=== PATIENT | female | born 1990 | race Caucasian/White ===

== ENCOUNTER 2021-08-30 12:44 | Emergency (ER) | payer OTHER ==
[2021-08-30 12:56] VITALS: O2SAT 98
[2021-08-30] MEDS ORDERED: TYLENOL 325 MG PO ONE (13:01)
[2021-08-30] MEDS ORDERED: TYLENOL 325 MG ONE (13:06)
--- NOTE | 2021-08-30 13:27 | ERPHSYRPT ---
- History of Present Illness Time Seen by Provider: 08/30/21 12:55 Source: patient Exam Limitations: no limitations Patient Subjective Stated Complaint: pt states "I got my finger caught in the dog kennel and though I just jammed it and had my boyfriend pull it and it is r eally swollen and bruised." Triage Nursing Assessment: Pt presented alert and oriented X 3, skin pwd. Pt ambulates with an upright steady gait, pt third digit on left hand swolen between distal knuckles and anteriorly bruised. Physician History: Patient a 30-year-old female presents emergency department for evaluation of injury to her left long finger. Patient states she caught her finger in a kennel. Pain described as an ache that is localized. No radiation. Pain worse with movement and palpation. Pain improved with rest. Patient thought that she had simply "jammed" her finger. Her significant other pulled her finger and it subsequently became swollen and more painful. Patient currently concerned with possible fracture. No other injuries reported. Patient denies history of the same. Patient voices no other complaints or concerns at this time. Timing/Duration: today Severity: mild Modifying Factors: Improves With: movement Associated Symptoms: denies symptoms Allergies/Adverse Reactions: latex Allergy (Severe, Verified 08/30/21 12:57) red hives itch Home Medications: Naltrexone HCl Dihydrate 50 gm MC DAILY 08/30/21 [History] Prazosin HCl 1 mg PO TID 08/30/21 [History] Vortioxetine Hydrobromide [Trintellix] 5 mg PO DAILY 08/30/21 [History] Hx Tetanus, Diphtheria Vaccination/Date Given: Yes Hx Influenza Vaccination/Date Given: No Hx Pneumococcal Vaccination/Date Given: No Immunizations Up to Date: Yes Travel Risk - International Travel Have you traveled outside of the country in past 3 weeks: No - Coronavirus Screening Are you exhibiting any of the following symptoms?: No Close contact with a COVID-19 positive Pt in past 14-21 Days: No - Vaccine Status Have you recieved a Covid-19 vaccination: No - Review of Systems Constitutional: No Symptoms, No Fever, No Chills Eyes: No Symptoms Ears, Nose, & Throat: No Symptoms Respiratory: No Symptoms, No Cough, No Dyspnea Cardiac: No Symptoms, No Chest Pain, No Edema, No Syncope Abdominal/Gastrointestinal: No Symptoms, No Abdominal Pain, No Nausea, No Vomiting, No Diarrhea Genitourinary Symptoms: No Symptoms, No Dysuria Musculoskeletal: No Symptoms, No Back Pain, No Neck Pain Skin: No Symptoms, No Rash Neurological: No Symptoms, No Dizziness, No Focal Weakness, No Sensory Changes Psychological: No Symptoms Endocrine: No Symptoms Hematologic/Lymphatic: No Symptoms Immunological/Allergic: No Symptoms All Other Systems: Reviewed and Negative - Past Medical History Pertinent Past Medical History: Yes Other Medical History: trentillix 5 mg - Past Surgical History Past Surgical History: Yes Other Surgical History: tonsils. genesis. c section X 3. oophrectomy left. hysterectomy. exploratory ob. hernia repair - Social History Smoking Status: Former smoker Exposure to second hand smoke: No Drug Use: none Patient Lives Alone: No - Female History Hx Last Menstrual Period: 03/2021 Hx Now: No - Nursing Vital Signs Nursing Vital Signs: Initial Vital Signs Temperature 97.0 F 08/30/21 12:51 Pulse Rate 68 08/30/21 12:51 Respiratory Rate 20 08/30/21 12:51 Blood Pressure 157/74 08/30/21 12:51 O2 Sat by Pulse Oximetry 98 08/30/21 12:51 Pain Scale Pain Intensity 6 - Physical Exam General Appearance: no apparent distress, alert Eye Exam: PERRL/EOMI, eyes nml inspection Ears, Nose, Throat Exam: normal ENT inspection, TMs normal, pharynx normal, moist mucous membranes Neck Exam: normal inspection, non-tender, supple, full range of motion Respiratory Exam: normal breath sounds, lungs clear, No respiratory distress Cardiovascular Exam: regular rate/rhythm, normal heart sounds, normal peripheral pulses Gastrointestinal/Abdomen Exam: soft, normal bowel sounds, No tenderness, No mass Back Exam: normal inspection, normal range of motion, No CVA tenderness, No vertebral tenderness Extremity Exam: normal inspection, normal range of motion, pelvis stable, other (Left long finger is swollen with ecchymosis. Pain with movement. The finger is neurovascular tact distally. Compartments are soft. Cap refill less than 2 seconds. Remaining fingers are unremarkable. No hand wrist or forearm pain or tenderness) Neurologic Exam: alert, oriented x 3, cooperative, normal mood/affect, nml cerebellar function, nml station & gait, sensation nml, No motor deficits Skin Exam: normal color, warm, dry, No rash Lymphatic Exam: No adenopathy SpO2 Interpretation: normal SpO2: 98 O2 Delivery: Room Air - Course Nursing assessment & vital signs reviewed: Yes - Radiology Exams Other X-ray Interpretation: Interpreted by me (Left long finger no fracture dislocations. Soft tissue swelling at the middle phalanx) Ordered Tests: Active Orders 24 hr Category Date Time Status FINGER(S) Stat Exams 08/30/21 13:01 Completed Medication Summary Discontinued Medications Generic Name Dose Route Start Last Admin Trade Name Erika PRN Reason Stop Dose Admin Acetaminophen 975 mg 08/30/21 13:01 08/30/21 13:08 Acetaminophen 325 Mg Tablet PO 08/30/21 13:02 975 mg STAT ONE Administration Acetaminophen Confirm 08/30/21 13:06 Acetaminophen 325 Mg Tablet Administered 08/30/21 13:07 Dose 975 mg .ROUTE .STK-MED ONE - Progress Progress: improved Progress Note: Patient reassessed. Pain improved. X-ray negative for fracture dislocation. Soft tissue swelling observed. Patient declined a finger splint. No indication for further work-up at this time. Will discharge home. Patient agrees to follow-up with primary care doctor within 48 hours for evaluation. Portions of this note were created with voice recognition technology. There may be grammatical, spelling, punctuation or sound alike errors 08/30/21 13:34 Counseled pt/family regarding: diagnosis, need for follow-up, rad results - Departure Departure Disposition: Home Clinical Impression: Finger contusion Condition: Stable Critical Care Time: No Additional Instructions: Discharge/Care Plan CHATA FORD was seen on 08/30/21 in the Emergency Room. The patient was counseled regarding Diagnosis,Lab results, Imaging studies, need for follow up and when to return to the Emergency Room. Prescriptions given: Discharge Note I have spoken with the patient and/or caregivers. I have explained the patient's condition, diagnosis and treatment plan based on the information available to me at this time. I have answered the patient's and/or caregiver's questions and addressed any concerns. The patient and/or caregivers have as good understanding of the patient's diagnosis, condition and treatment plan as can be expected at this point. The vital signs have been stable. The patient's condition is stable and appropriate for discharge from the emergency department. The patient will pursue further outpatient evaluation with the primary care physician or other designated or consulting physician as outlined in the discharge instructions. The patient and/or caregivers are agreeable to this plan of care and follow-up instructions have been explained in detail. The patient a nd/or caregivers have received these instruction. The patient/and or caregivers are aware that any significant change in condition or worsening of symptoms should prompt an immediate return to this or the closest emergency department or call 911.
--- NOTE | 2021-08-30 13:28 | XRAY ---
Indication: Pain and numbness following injury. Comparison: None 3 view left 3rd finger demonstrates mild soft tissue swelling. No other bony, articular, or soft tissue abnormalities.
[2021-08-30 13:37] VITALS: BP 150/82; PULSE 64
== END 2021-08-30 13:43 | disposition home or self-care (01) ==
LOC: ED 12:44
DX: S60.032A Contusion of left middle finger without damage to nail, initial encounter (principal); W23.0XXA Caught, crushed, jammed, or pinched between moving objects, initial encounter; M79.645 Pain in left finger(s); Z28.310 Unvaccinated for COVID-19
CPT/HCPCS: 73140; 99283; A9270-GY

== ENCOUNTER 2021-09-13 21:06 | Emergency (ER) | payer OTHER ==
[2021-09-13] MEDS ORDERED: SUBLIMAZE 100 MCG/2 ML IV ONE ×2 (21:24→22:11)
[2021-09-13] MEDS ORDERED: Sodium Chloride 0.9% 1000 ML 1,000 ML IV STA (21:24)
[2021-09-13] MEDS ORDERED: Reglan 10 MG/2 ML IV ONE (21:24)
[2021-09-13] MEDS ORDERED: Reglan 10 MG/2 ML ONE (21:31)
[2021-09-13] MEDS ORDERED: Sodium Chloride 0.9% 1000 ML 1,000 ML ONE (21:31)
[2021-09-13] MEDS ORDERED: SUBLIMAZE 100 MCG/2 ML ONE ×2 (21:31→22:14)
[2021-09-13 21:57] LABS: Appearance CLEAR (CLEAR); Bilirubin NEGATIVE (NEGATIVE); Dipstick done @ ? MAIN LAB; Glucose NEGATIVE (NEGATIVE); Ketones NEGATIVE (NEGATIVE); Nitrite NEGATIVE (NEGATIVE); Protein,Urine Dip NEGATIVE (Negative); RBC NEGATIVE Ery/ul (0-5); Specific Gravity 1.025 (1.005-1.025); Urobilinogen 0.2 mg/dL (0-1)
[2021-09-13 21:58] LABS: Urine Cultured Indicated? NO
[2021-09-13 22:19] LABS: Basophil (Absolute #) 0.02 x10^3/uL (0-0.4); Eosinophil % 1.1 % (0.00-5.0); Hematocrit 32.4 % (35-47); Hemoglobin 11.1 g/dL (12.0-16.0); Lymphocyte (Absolute #) 1.04 x10^3/uL (1.0-4.6); Lymphocytes % 11.8 % (24.0-44.0); Mean Cell Volume 90.3 fL (78-100); Mean Corpuscular Hemoglobin 30.9 pg (26-32); Mean Corpuscular Hgb Concent. 34.3 g/dL (32-36); Mean Platelet Volume 11.4 fL (7.5-11.0); Monocyte (Absolute #) 0.65 x10^3/uL (0.0-1.3); Monocytes % 7.4 % (0.0-12.0); Neutrophil % 79.3 % (36.0-66.0); Platelet Count 155 x10^3/uL (150-450); Red Blood Count 3.59 x10^6/uL (4.1-5.4); Red Cell Distribution Width 12.8 % (11.5-14.0); White Blood Count 8.8 x10^3/uL (4.0-10.5)
[2021-09-13 22:32] LABS: ALKALINE PHOSPHATASE 57 U/L (38-126); AMYLASE 59 U/L (30-110); ANION GAP 13.7 MEQ/L (5-15); BLOOD UREA NITROGEN 12 mg/dL (7-17); CHLORIDE 107 mmol/L (98-107); Calcium 8.8 mg/dL (8.4-10.2); Carbon Dioxide 19 mmol/L (22-30); Creatinine 1 0.59 mg/dL (0.52-1.04); EST GLOMERULAR FILTRATION RATE > 60.0 ML/MIN; Glucose 90 mg/dL (74-106); LIPASE 64 U/L (23-300); Potassium 3.3 mmol/L (3.5-5.1); SGOT/AST 20 U/L (14-36); SGPT/ALT 12 U/L (0-35); SODIUM 137 mmol/L (137-145); Total Protein 6.4 g/dL (6.3-8.2)
--- NOTE | 2021-09-13 23:03 | ERPHSYRPT ---
- History of Present Illness Time Seen by Provider: 09/13/21 21:25 Historian: patient Exam Limitations: no limitations Patient Subjective Stated Complaint: pt states "I woke up this morning around 0900 this morning throwin up and diarrhea all day today." Triage Nursing Assessment: Pt ambulated to cot by self, pt alert and oriented x3, pt c/o umbilical abd pain, n/v/d 0900 this morning, pt denies fever at home or any other symptoms, pt afebrile currently, pt has hx of hernia repair, 3 c sections, gall bladder removed, and hysterectomy. Physician History: Patient is a 31-year-old white female presents with a complaint of abdominal pain. Pain is located in the periumbilical area she has had diarrhea nausea and vomiting which started this a.m. She has had no fever no chills but some sweats. She has had 3 C-sections a hysterectomy hernia repair and oophorectomy as well as a right tubal ligation. Timing/Duration: today Activities at Onset: none Quality: cramping Abdominal Pain Onset Location: periumbilical Pain Radiation: no radiation Severity of Pain-Max: moderate Severity of Pain-Current: mild Modifying Factors: Improves With: vomiting Associated Symptoms: diaphoresis, diarrhea, nausea, vomiting, No fever/chills Previous symptoms: no prior history Allergies/Adverse Reactions: aripiprazole [From Abiliy] Allergy (Severe, Verified 09/13/21 21:15) latex Allergy (Severe, Verified 09/13/21 21:15) red hives itch Home Medications: Naltrexone HCl Dihydrate 50 gm MC DAILY 08/30/21 [History] Prazosin HCl 1 mg PO TID 08/30/21 [History] Vortioxetine Hydrobromide [Trintellix] 5 mg PO DAILY 08/30/21 [History] Hx Tetanus, Diphtheria Vaccination/Date Given: Yes Hx Influenza Vaccination/Date Given: No Hx Pneumococcal Vaccination/Date Given: No Immunizations Up to Date: Yes Travel Risk - International Travel Have you traveled outside of the country in past 3 weeks: No - Coronavirus Screening Are you exhibiting any of the following symptoms?: No Close contact with a COVID-19 positive Pt in past 14-21 Days: No - Vaccine Status Have you recieved a Covid-19 vaccination: No - Review of Systems Constitutional: No Fever, No Chills Eyes: No Symptoms Ears, Nose, & Throat: No Symptoms Respiratory: No Cough, No Dyspnea Cardiac: No Chest Pain, No Edema, No Syncope Abdominal/Gastrointestinal: No Abdominal Pain, No Nausea, No Vomiting, No Diarrhea Genitourinary Symptoms: No Dysuria Musculoskeletal: No Back Pain, No Neck Pain Skin: No Rash Neurological: No Dizziness, No Focal Weakness, No Sensory Changes Psychological: No Symptoms Endocrine: No Symptoms All Other Systems: Reviewed and Negative - Past Medical History Pertinent Past Medical History: Yes Neurological History: No Pertinent History ENT History: No Pertinent History Cardiac History: No Pertinent History Respiratory History: No Pertinent History Endocrine Medical History: No Pertinent History Musculoskeletal History: No Pertinent History History: Kidney Cancer Psycho-Social History: Depression Female Reproductive Disorders: Ovarian Cancer Other Medical History: trentillix 5 mg - Past Surgical History Past Surgical History: Yes Other Surgical History: tonsils. genesis. c section X 3. oophrectomy left. hysterectomy. exploratory ob. hernia repair - Social History Smoking Status: Former smoker Exposure to second hand smoke: No Drug Use: none Patient Lives Alone: No - Female History Hx Last Menstrual Period: hysterecomy Hx Now: No - Nursing Vital Signs Nursing Vital Signs: Initial Vital Signs Temperature 97.6 F 09/13/21 21:16 Pulse Rate 76 09/13/21 21:16 Respiratory Rate 18 09/13/21 21:16 Blood Pressure 155/87 09/13/21 21:16 O2 Sat by Pulse Oximetry 99 09/13/21 21:16 Pain Scale Pain Intensity 9 - Physical Exam General Appearance: mild distress, alert Eye Exam: PERRL/EOMI, eyes nml inspection Ears, Nose, Throat Exam: normal ENT inspection, pharynx normal, moist mucous membranes Neck Exam: normal inspection, non-tender, supple, full range of motion Respiratory Exam: normal breath sounds, lungs clear, No respiratory distress Cardiovascular Exam: regular rate/rhythm, normal heart sounds Gastrointestinal/Abdomen Exam: soft, tenderness, guarding, other (Increased bowel sounds), No mass, No rebound Back Exam: normal inspection, normal range of motion, No CVA tenderness, No vertebral tenderness Extremity Exam: normal inspection, normal range of motion, pelvis stable Neurologic Exam: alert, oriented x 3, cooperative, normal mood/affect, nml cerebellar function, sensation nml, No motor deficits Skin Exam: normal color, warm, dry SpO2 Interpretation: normal SpO2: 99 O2 Delivery: Room Air - Course Nursing assessment & vital signs reviewed: Yes - CT Exams Abdomen/Pelvis CT Interpretation: Tele-radiologist Report Ordered Tests: Active Orders 24 hr Category Date Time Status IV Insertion STAT Care 09/13/21 21:24 Active ABDOMEN AND PELVIS W/0 CONTRAS [CT] Stat Exams 09/13/21 21:24 Taken AMYLASE Stat Lab 09/13/21 22:16 Completed CBC W DIFF Stat Lab 09/13/21 22:16 Completed CMP Stat Lab 09/13/21 22:16 Completed LIPASE Stat Lab 09/13/21 22:16 Completed Lactic Acid Stat Lab 09/13/21 22:14 Completed UA W/RFX CULTURE Stat Lab 09/13/21 21:31 Completed Medication Summary Discontinued Medications Generic Name Dose Route Start Last Admin Trade Name Freq PRN Reason Stop Dose Admin Fentanyl Citrate 50 mcg 09/13/21 21:24 09/13/21 21:32 Fentanyl Citrate 100 Mcg/2 Ml* Vial IV 09/13/21 21:25 50 mcg STAT ONE Administration Fentanyl Citrate Confirm 09/13/21 21:31 Fentanyl Citrate 100 Mcg/2 Ml* Vial Administered 09/13/21 21:32 Dose 100 mcg .ROUTE .STK-MED ONE Fentanyl Citrate 50 mcg 09/13/21 22:11 09/13/21 22:15 Fentanyl Citrate 100 Mcg/2 Ml* Vial IV 09/13/21 22:12 50 mcg STAT ONE Administration Fentanyl Citrate Confirm 09/13/21 22:14 Fentanyl Citrate 100 Mcg/2 Ml* Vial Administered 09/13/21 22:15 Dose 100 mcg .ROUTE .STK-MED ONE Sodium Chloride 1,000 mls @ 999 mls/hr 09/13/21 21:24 09/13/21 22:33 Sodium Chloride 0.9% 1000 Ml IV 09/13/21 22:24 Infused .Q1H1M STA Infusion Sodium Chloride Confirm 09/13/21 21:31 Sodium Chloride 0.9% 1000 Ml Administered 09/13/21 21:32 Dose 1,000 mls @ ud .ROUTE .STK-MED ONE Metoclopramide HCl 10 mg 09/13/21 21:24 09/13/21 21:32 Metoclopramide Hcl 10 Mg/2 Ml Vial IV 09/13/21 21:25 10 mg STAT ONE Administration Metoclopramide HCl Confirm 09/13/21 21:31 Metoclopramide Hcl 10 Mg/2 Ml Vial Administered 09/13/21 21:32 Dose 10 mg .ROUTE .K-MED ONE Lab/Rad Data: Laboratory Result Diagrams 09/13/21 22:16 09/13/21 22:16 Laboratory Results 09/13/21 09/13/21 09/13/21 Range/Units 22:16 22:16 22:14 WBC 8.8 (4.0-10.5) x10^3/uL RBC 3.59 L (4.1-5.4) x10^6/uL Hgb 11.1 L (12.0-16.0) g/dL Hct 32.4 L (35-47) % MCV 90.3 (78-100) fL MCH 30.9 (26-32) pg MCHC 34.3 (32-36) g/dL RDW 12.8 (11.5-14.0) % Plt Count 155 (150-450) x10^3/uL MPV 11.4 H (7.5-11.0) fL Gran % 79.3 H (36.0-66.0) % Immature Gran % (Auto) 0.2 (0.00-0.4) % Nucleat RBC Rel Count 0.0 (0.00-0.1) % Eos # (Auto) 0.10 (0-0.5) x10^3/uL Immature Gran # (Auto) 0.02 (0.00-0.03) x10^3u/L Absolute Lymphs (auto) 1.04 (1.0-4.6) x10^3/uL Absolute Monos (auto) 0.65 (0.0-1.3) x10^3/uL Absolute Nucleated RBC 0.00 (0.00-0.01) x10^3u/L Lymphocytes % 11.8 L (24.0-44.0) % Monocytes % 7.4 (0.0-12.0) % Eosinophils % 1.1 (0.00-5.0) % Basophils % 0.2 (0.0-0.4) % Absolute Granulocytes 7.00 H (1.4-6.9) x10^3/uL Basophils # 0.02 (0-0.4) x10^3/uL Sodium 137 (137-145) mmol/L Potassium 3.3 L (3.5-5.1) mmol/L Chloride 107 (98-107) mmol/L Carbon Dioxide 19 L (22-30) mmol/L Anion Gap 13.7 (5-15) MEQ/L BUN 12 (7-17) mg/dL Creatinine 0.59 (0.52-1.04) mg/dL Estimated GFR > 60.0 ML/MIN Glucose 90 (74-106) mg/dL Lactic Acid 0.5 (0.4-2.0) Calcium 8.8 (8.4-10.2) mg/dL Total Bilirubin 0.40 (0.2-1.3) mg/dL AST 20 (14-36) U/L ALT 12 (0-35) U/L Alkaline Phosphatase 57 (38-126) U/L Serum Total Protein 6.4 (6.3-8.2) g/dL Albumin 4.0 (3.5-5.0) g/dL Amylase 59 (30-110) U/L Lipase 64 (23-300) U/L Urinalys Dipstick Clnc Urine Color (YELLOW) Urine Appearance (CLEAR) Urine pH (5-6) Ur Specific [place] (1.005-1.025) POC Urine Protein Conf (Negative) Urine Ketones (NEGATIVE) Urine Nitrite (NEGATIVE) Urine Bilirubin (NEGATIVE) Urine Urobilinogen (0-1) mg/dL Urine Leukocytes (NEGATIVE) Urine WBC (Auto) (0-5) /HPF Urine RBC (Auto) (0-2) /HPF U Epithel Cells (Auto) (FEW) /HPF Urine Bacteria (Auto) (NEGATIVE) /HPF Urine RBC (0-5) Art/ul Ur Culture Indicated? Urine Glucose (NEGATIVE) mg/dL 09/13/ Range/Units 21:31 WBC (4.0-10.5) x10^3/uL RBC (4.1-5.4) x10^6/uL Hgb (12.0-16.0) g/dL Hct (35-47) % MCV (78-100) fL MCH (26-32) pg MCHC (32-36) g/dL RDW (11.5-14.0) % Plt Count (150-450) x10^3/uL MPV (7.5-11.0) fL Gran % (36.0-66.0) % Immature Gran % (Auto) (0.00-0.4) % Nucleat RBC Rel Count (0.00-0.1) % Eos # (Auto) (0-0.5) x10^3/uL Immature Gran # (Auto) (0.00-0.03) x10^3u/L Absolute Lymphs (auto) (1.0-4.6) x10^3/uL Absolute Monos (auto) (0.0-1.3) x10^3/uL Absolute Nucleated RBC (0.00-0.01) x10^3u/L Lymphocytes % (24.0-44.0) % Monocytes % (0.0-12.0) % Eosinophils % (0.00-5.0) % Basophils % (0.0-0.4) % Absolute Granulocytes (1.4-6.9) x10^3/uL Basophils # (0-0.4) x10^3/uL Sodium (137-145) mmol/L Potassium (3.5-5.1) mmol/L Chloride (98-107) mmol/L Carbon Dioxide (22-30) mmol/L Anion Gap (5-15) MEQ/L BUN (7-17) mg/dL Creatinine (0.52-1.04) mg/dL Estimated GFR ML/MIN Glucose (74-106) mg/dL Lactic Acid (0.4-2.0) Calcium (8.4-10.2) mg/dL Total Bilirubin (0.2-1.3) mg/dL AST (14-36) U/L ALT (0-35) U/L Alkaline Phosphatase (38-126) U/L Serum Total Protein (6.3-8.2) g/dL Albumin (3.5-5.0) g/dL Amylase (30-110) U/L Lipase (23-300) U/L Urinalys Dipstick Clnc MAIN LAB Urine Color YELLOW (YELLOW) Urine Appearance CLEAR (CLEAR) Urine pH 6.0 (5-6) Ur Specific [place] 1.025 (1.005-1.025) POC Urine Protein Conf NEGATIVE (Negative) Urine Ketones NEGATIVE (NEGATIVE) Urine Nitrite NEGATIVE (NEGATIVE) Urine Bilirubin NEGATIVE (NEGATIVE) Urine Urobilinogen 0.2 (0-1) mg/dL Urine Leukocytes NEGATIVE (NEGATIVE) Urine WBC (Auto) NONE (0-5) /HPF Urine RBC (Auto) NONE (0-2) /HPF U Epithel Cells (Auto) NONE (FEW) /HPF Urine Bacteria (Auto) NONE (NEGATIVE) /HPF Urine RBC NEGATIVE (0-5) Art/ul Ur Culture Indicated? NO Urine Glucose NEGATIVE (NEGATIVE) mg/dL - Progress Progress: unchanged - Departure Departure Disposition: Home Clinical Impression: Gastroenteritis Condition: Stable Critical Care Time: No Referrals: JAY CASH NP [Primary Care Provider] - Follow up/PCP as directed Instructions: Viral Gastroenteritis, Adult (DC) Prescriptions: Dicyclomine HCl 20 mg [Bentyl 20 mg] 20 mg PO Q6-8HPRN PRN 3 Days #10 tablet PRN Reason: Pain
[2021-09-13] MEDS ORDERED: BENTYL 20 MG ONE (23:06)
[2021-09-13 23:16] VITALS: BP 134/87; PULSE 72; O2SAT 98
[2021-09-14] MEDS ORDERED: BENTYL 20 MG PO SCH (10:00)
--- NOTE | 2021-09-14 21:12 | XRAY ---
Exam: CT of the abdomen and pelvis without IV contrast. CTDI: 6.68 mGy Comparison: [None.] Indication: 31-year-old female with lower abdominal/pelvic pain with nausea, vomiting, and diarrhea. The patient gives a past history of cholecystectomy, partial right nephrectomy, hysterectomy, hernia repair, and oophorectomy. Technique: Non-IV contrast axial images were obtained through the abdomen and pelvis. Reconstructed coronal and sagittal images were created and reviewed. Findings: The lung bases reveal several right perihilar/infrahilar granulomatous calcifications. There is also a small calcified granuloma within the posterior lateral right lung base. No acute lung disease is seen. The liver and spleen appear unremarkable. Surgical clips consistent with prior cholecystectomy are seen. There is no intrahepatic biliary duct distention. The pancreas reveals no gross abnormality. The adrenal glands appear unremarkable. I note some postsurgical changes at the anterior lateral surface of the right kidney, apparently due to prior right kidney surgery/partial resection. The remainder of the kidneys appears unremarkable without renal calculi or hydronephrosis. There is no evidence of abdominal aortic aneurysm or abnormal retroperitoneal lymphadenopathy. No bowel containing ventral hernia is seen. There is minimal protrusion of some intraperitoneal fat into the base of the umbilicus on midline sagittal image #95. Nondilated, gas and fluid/secretions within the small bowel and colon are seen, likely due to enteritis/diarrhea. There is no evidence of bowel obstruction. The appendix is seen within the right lower quadrant and appears unremarkable. There is no free intraperitoneal air. The pelvis reveals a surgically absent uterus. There is a 4.2 cm x 2.9 cm oval-shaped soft tissue structure within the right hemipelvis on axial images #76 which likely represents the patient's right ovary. The left ovary is not seen. The urinary bladder is only mildly distended. There is no abnormal pelvic lymphadenopathy or free intraperitoneal fluid. There appear to be a couple calcified phleboliths within the lower right pelvis. Labial metallic jewelry is seen. The visualized bones reveal no fracture or aggressive bone lesion. Mild anterior vertebral endplate spurring is seen within the visualized lower thoracic spine. Impression: 1. Nondilated, gas and fluid/secretions within the small bowel and colon, likely due to enteritis/diarrhea. No bowel obstruction or free air/free fluid is seen. 2. Evidence of prior cholecystectomy, right renal surgery, hysterectomy, an apparent left oophorectomy. 3. Normal appendix.
== END 2021-09-13 23:21 | disposition home or self-care (01) ==
LOC: ED 21:06
DX: K52.9 Noninfective gastroenteritis and colitis, unspecified (principal); R10.33 Periumbilical pain; R11.2 Nausea with vomiting, unspecified; Z79.899 Other long term (current) drug therapy; Z28.310 Unvaccinated for COVID-19
CPT/HCPCS: 36000; 36415; 74176; 80053; 81015; 82150; 83605; 83690; 85025; 96374; 96375; 96376; 99284; J3010; A9270-GY

== ENCOUNTER 2021-09-16 12:05 | Emergency (ER) | payer OTHER ==
--- NOTE | 2021-09-16 12:32 | ERPHSYRPT ---
- History of Present Illness Time Seen by Provider: 09/16/21 12:20 Historian: patient Exam Limitations: no limitations Patient Subjective Stated Complaint: Right sided pelvic pain Triage Nursing Assessment: Patient ambulated back to ED and transferred self to bed. Patient A+O X.3 Patient's skin pink, warm and dry. Patient complains of right lower pelvic pain that started last night constant sharp pain 9/10. Patient denies N/V but states she is still having diarrhea. Patient states she was dx with enteritis a couple days ago. Physician History: This is a 31-year-old white female patient of Dr. Ramirez in [facility] and is now living in [facility] and presents to the emergency department with right lower quadrant abdominal pain. She was seen on 09/13/2021 because of abdominal pain, vomiting and diarrhea. A CAT scan on that date without contrast showed enteritis. There is no bowel obstruction. There is a normal appendix seen. There was no bowel obstruction and no free air present. Patient has had a right oophorectomy in the past and bilateral tubal ligation in the past. She is also had a cholecystectomy and hysterectomy as well as abdominal wall hernia repair. Patient had been improving in the last couple days but this morning she drank a cup of coffee and then she started having pain in in her abdomen that she described as intermittent sharp shooting pain and cramping. It became persistent as the day has progressed. Patient was given a prescription for Bentyl which she states she has been taking. Patient did not undergo any flu swab testing during her last visit. She has not been vomiting blood or passing blood rectally. She has had no vaginal bleeding. Timing/Duration: day(s) (3 to 4 days ago), intermittent, worse Activities at Onset: none Quality: cramping, sharpness, stabbing Abdominal Pain Onset Location: RLQ, suprapubic (Right side) Pain Radiation: no radiation Severity of Pain-Max: moderate Severity of Pain-Current: mild (To moderate) Associated Symptoms: denies symptoms Previous symptoms: same symptoms as today, recently seen, recently treated Allergies/Adverse Reactions: aripiprazole [From Abilify] Allergy (Severe, Verified 09/16/21 12:12) latex Allergy (Severe, Verified 09/16/21 12:12) red hives itch Home Medications: Vortioxetine Hydrobromide [Trintellix] 5 mg PO DAILY 08/30/21 [History] Hx Tetanus, Diphtheria Vaccination/Date Given: Yes Hx Influenza Vaccination/Date Given: No Hx Pneumococcal Vaccination/Date Given: No Immunizations Up to Date: Yes Travel Risk - International Travel Have you traveled outside of the country in past 3 weeks: No - Coronavirus Screening Are you exhibiting any of the following symptoms?: No Close contact with a COVID-19 positive Pt in past 14-21 Days: No - Vaccine Status Have you recieved a Covid-19 vaccination: No - Review of Systems Constitutional: No Symptoms Eyes: No Symptoms Ears, Nose, & Throat: No Symptoms Respiratory: No Symptoms Cardiac: No Symptoms Abdominal/Gastrointestinal: Abdominal Pain Genitourinary Symptoms: No Symptoms Musculoskeletal: No Symptoms Skin: No Symptoms Neurological: No Symptoms Psychological: No Symptoms Endocrine: No Symptoms Hematologic/Lymphatic: No Symptoms Immunological/Allergic: No Symptoms All Other Systems: Reviewed and Negative - Past Medical History Pertinent Past Medical History: Yes Neurological History: No Pertinent History ENT History: No Pertinent History Cardiac History: No Pertinent History Respiratory History: No Pertinent History Endocrine Medical History: No Pertinent History Musculoskeletal History: No Pertinent History History: Kidney Cancer Psycho-Social History: Depression Female Reproductive Disorders: Ovarian Cancer Other Medical History: trentillix 5 mg - Past Surgical History Past Surgical History: Yes Other Surgical History: tonsils. genesis. c section X 3. oophrectomy left. hysterectomy. exploratory ob. hernia repair - Social History Smoking Status: Former smoker Exposure to second hand smoke: No Drug Use: none Patient Lives Alone: No - Female History Hx Last Menstrual Period: hysterectomy Hx Now: No - Nursing Vital Signs Nursing Vital Signs: Initial Vital Signs Temperature 96.4 F 09/16/21 12:15 Pulse Rate 78 09/16/21 12:15 Respiratory Rate 18 09/16/21 12:15 Blood Pressure 135/72 09/16/21 12:15 O2 Sat by Pulse Oximetry 98 09/16/21 12:15 Pain Scale Pain Intensity 8 - Physical Exam General Appearance: no apparent distress, alert, anxiety Eye Exam: PERRL/EOMI, eyes nml inspection Ears, Nose, Throat Exam: normal ENT inspection, moist mucous membranes Neck Exam: normal inspection, non-tender, supple, full range of motion Respiratory Exam: normal breath sounds, lungs clear, airway intact, No chest tenderness, No respiratory distress Cardiovascular Exam: regular rate/rhythm, normal heart sounds, normal peripheral pulses Gastrointestinal/Abdomen Exam: soft, normal bowel sounds, tenderness (Mild right lower quadrant), guarding (Right lower quadrant with palpation) Pelvic Exam: not done Rectal Exam: not done Back Exam: normal inspection, normal range of motion, No CVA tenderness, No vertebral tenderness Extremity Exam: normal inspection, normal range of motion, pelvis stable Neurologic Exam: alert, oriented x 3, cooperative, library assistant II-XII nml as tested, normal mood/affect, nml cerebellar function, nml station & gait, sensation nml Skin Exam: normal color, warm, dry Lymphatic Exam: No adenopathy SpO2 Interpretation: normal SpO2: 98 O2 Delivery: Room Air - Course Nursing assessment & vital signs reviewed: Yes Ordered Tests: Active Orders 24 hr Category Date Time Status IV Insertion STAT Care 09/16/21 12:36 Active ABDOMEN AND PELVIS W/0 CONTRAS [CT] Stat Exams 09/16/21 12:36 Taken AMYLASE Stat Lab 09/16/21 13:12 Completed CBC W DIFF Stat Lab 09/16/21 13:12 Completed CMP Stat Lab 09/16/21 13:12 Completed LIPASE Stat Lab 09/16/21 13:12 Completed Lactic Acid Stat Lab 09/16/21 13:20 Completed [place] Screen Stat Lab 09/16/21 Completed UA W/RFX CULTURE Stat Lab 09/16/21 12:38 Completed Medication Summary Discontinued Medications Generic Name Dose Route Start Last Admin Trade Name Saleemq PRN Reason Stop Dose Admin Sodium Chloride 1,000 mls @ 999 mls/hr 09/16/21 12:36 09/16/21 14:05 Sodium Chloride 0.9% 1000 Ml IV 09/16/21 13:36 Infused .Q1H1M STA Infusion Sodium Chloride Confirm 09/16/21 13:02 Sodium Chloride 0.9% 1000 Ml Administered 09/16/21 13:03 Dose 1,000 mls @ ud .ROUTE .STK-MED ONE Ondansetron HCl 4 mg 09/16/21 13:01 09/16/21 13:04 Ondansetron Hcl 4 Mg/2 Ml Vial IV 09/16/21 13:02 4 mg STAT ONE Administration Ondansetron HCl Confirm 09/16/21 13:02 Ondansetron Hcl 4 Mg/2 Ml Vial Administered 09/16/21 13:03 Dose 4 mg .ROUTE .STK-MED ONE Lab/Rad Data: Laboratory Result Diagrams 09/16/21 13:12 09/16/21 13:12 Laboratory Results 09/16/21 09/16/21 09/16/21 Range/Units Unknown 13:20 13:12 WBC (4.0-10.5) x10^3/uL RBC (4.1-5.4) x10^6/uL Hgb (12.0-16.0) g/dL Hct (35-47) % MCV (78-100) fL MCH (26-32) pg MCHC (32-36) g/dL RDW (11.5-14.0) % Plt Count (150-450) x10^3/uL MPV (7.5-11.0) fL Gran % (36.0-66.0) % Immature Gran % (Auto) (0.00-0.4) % Nucleat RBC Rel Count (0.00-0.1) % Eos # (Auto) (0-0.5) x10^3/uL Immature Gran # (Auto) (0.00-0.03) x10^3u/L Absolute Lymphs (auto) (1.0-4.6) x10^3/uL Absolute Monos (auto) (0.0-1.3) x10^3/uL Absolute Nucleated RBC (0.00-0.01) x10^3u/L Lymphocytes % (24.0-44.0) % Monocytes % (0.0-12.0) % Eosinophils % (0.00-5.0) % Basophils % (0.0-0.4) % Absolute Granulocytes (1.4-6.9) x10^3/uL Basophils # (0-0.4) x10^3/uL Sodium 139 (137-145) mmol/L Potassium 3.7 (3.5-5.1) mmol/L Chloride 107 (98-107) mmol/L Carbon Dioxide 22 (22-30) mmol/L Anion Gap 13.5 (5-15) MEQ/L BUN 10 (7-17) mg/dL Creatinine 0.64 (0.52-1.04) mg/dL Estimated GFR > 60.0 ML/MIN Glucose 94 (74-106) mg/dL Lactic Acid 0.6 (0.4-2.0) Calcium 9.3 (8.4-10.2) mg/dL Total Bilirubin 0.60 (0.2-1.3) mg/dL AST 23 (14-36) U/L ALT 15 (0-35) U/L Alkaline Phosphatase 63 (38-126) U/L Serum Total Protein 7.4 (6.3-8.2) g/dL Albumin 4.6 (3.5-5.0) g/dL Amylase 76 (30-110) U/L Lipase 69 (23-300) U/L Urinalys Dipstick Clnc Urine Color (YELLOW) Urine Appearance (CLEAR) Urine pH (5-6) Ur Specific [place] (1.005-1.025) POC Urine Protein Conf (Negative) Urine Ketones (NEGATIVE) Urine Nitrite (NEGATIVE) Urine Bilirubin (NEGATIVE) Urine Urobilinogen (0-1) mg/dL Urine Leukocytes (NEGATIVE) Urine WBC (Auto) (0-5) /HPF Urine RBC (Auto) (0-2) /HPF U Epithel Cells (Auto) (FEW) /HPF Urine Bacteria (Auto) (NEGATIVE) /HPF Urine RBC (0-5) Art/ul Ur Culture Indicated? Urine Glucose (NEGATIVE) mg/dL Monoscreen NEGATIVE (Negative) 09/16/21 09/16/21 Range/Units 13:12 12:38 WBC 4.3 (4.0-10.5) x10^3/uL RBC 3.88 L (4.1-5.4) x10^6/uL Hgb 11.8 L (12.0-16.0) g/dL Hct 34.3 L (35-47) % MCV 88.4 (78-100) fL MCH 30.4 (26-32) pg MCHC 34.4 (32-36) g/dL RDW 12.5 (11.5-14.0) % Plt Count 172 (150-450) x10^3/uL MPV 10.9 (7.5-11.0) fL Gran % 69.6 H (36.0-66.0) % Immature Gran % (Auto) 0.2 (0.00-0.4) % Nucleat RBC Rel Count 0.0 (0.00-0.1) % Eos # (Auto) 0.06 (0-0.5) x10^3/uL Immature Gran # (Auto) 0.01 (0.00-0.03) x10^3u/L Absolute Lymphs (auto) 0.72 L (1.0-4.6) x10^3/uL Absolute Monos (auto) 0.52 (0.0-1.3) x10^3/uL Absolute Nucleated RBC 0.00 (0.00-0.01) x10^3u/L Lymphocytes % 16.6 L (24.0-44.0) % Monocytes % 12.0 (0.0-12.0) % Eosinophils % 1.4 (0.00-5.0) % Basophils % 0.2 (0.0-0.4) % Absolute Granulocytes 3.02 (1.4-6.9) x10^3/uL Basophils # 0.01 (0-0.4) x10^3/uL Sodium (137-145) mmol/L Potassium (3.5-5.1) mmol/L Chloride (98-107) mmol/L Carbon Dioxide (22-30) mmol/L Anion Gap (5-15) MEQ/L BUN (7-17) mg/dL Creatinine (0.52-1.04) mg/dL Estimated GFR ML/MIN Glucose (74-106) mg/dL Lactic Acid (0.4-2.0) Calcium (8.4-10.2) mg/dL Total Bilirubin (0.2-1.3) mg/dL AST (14-36) U/L ALT (0-35) U/L Alkaline Phosphatase (38-126) U/L Serum Total Protein (6.3-8.2) g/dL Albumin (3.5-5.0) g/dL Amylase (30-110) U/L Lipase (23-300) U/L Urinalys Dipstick Clnc MAIN LAB Urine Color YELLOW (YELLOW) Urine Appearance CLEAR (CLEAR) Urine pH 6.0 (5-6) Ur Specific [place] 1.010 (1.005-1.025) POC Urine Protein Conf NEGATIVE (Negative) Urine Ketones NEGATIVE (NEGATIVE) Urine Nitrite NEGATIVE (NEGATIVE) Urine Bilirubin NEGATIVE (NEGATIVE) Urine Urobilinogen 0.2 (0-1) mg/dL Urine Leukocytes NEGATIVE (NEGATIVE) Urine WBC (Auto) NONE (0-5) /HPF Urine RBC (Auto) NONE (0-2) /HPF U Epithel Cells (Auto) NONE (FEW) /HPF Urine Bacteria (Auto) RARE (NEGATIVE) /HPF Urine RBC TRACE-INTACT (0-5) Art/ul Ur Culture Indicated? NO Urine Glucose NEGATIVE (NEGATIVE) mg/dL Monoscreen (Negative) - Progress Progress: unchanged, re-examined Progress Note: 09/16/21 14:19 CAT scan of the abdomen and pelvis without contrast was compared to that same test that was done 3 days ago. There is resolution of the patient's bowel enteritis. There is no acute intra-abdominal or intrapelvic abnormalities on today's CAT scan of the abdomen and pelvis without contrast. Medical decision making: This patient is refusing the COVID test. She also does not want to wait for the results of the monotest that we sebas. I think that this is in the patient's right to refuse a COVID test and I do not think it is necessary to have the patient's sign out AMA while we wait for the monotest. She wants to leave. We will discharge her to home since there is no emergency issue with this patient. Counseled pt/family regarding: diagnosis, need for follow-up, rad results - Departure Departure Disposition: Home Clinical Impression: Abdominal pain Condition: Stable Critical Care Time: No Referrals: JAY RAMIREZ NP [Primary Care Provider] - Follow up/PCP as directed Additional Instructions: Drink plenty of clear liquids. Use Tylenol for pain control. Follow-up with your primary care physician for further evaluation and management.
[2021-09-16] MEDS ORDERED: Sodium Chloride 0.9% 1000 ML 1,000 ML IV STA (12:36)
[2021-09-16] MEDS ORDERED: Zofran 4 MG/2 ML VIAL IV ONE (13:01)
[2021-09-16] MEDS ORDERED: Sodium Chloride 0.9% 1000 ML 1,000 ML ONE (13:02)
[2021-09-16] MEDS ORDERED: Zofran 4 MG/2 ML VIAL ONE (13:02)
[2021-09-16 13:13] LABS: Absolute Neutrophil Ct (ANC) 3.02 x10^3/uL (1.4-6.9); Basophil (Absolute #) 0.01 x10^3/uL (0-0.4); Eosinophil % 1.4 % (0.00-5.0); Eosinophil (Absolute #) 0.06 x10^3/uL (0-0.5); Hematocrit 34.3 % (35-47); Hemoglobin 11.8 g/dL (12.0-16.0); Lymphocyte (Absolute #) 0.72 x10^3/uL (1.0-4.6); Lymphocytes % 16.6 % (24.0-44.0); Mean Cell Volume 88.4 fL (78-100); Mean Corpuscular Hemoglobin 30.4 pg (26-32); Mean Corpuscular Hgb Concent. 34.4 g/dL (32-36); Mean Platelet Volume 10.9 fL (7.5-11.0); Monocyte (Absolute #) 0.52 x10^3/uL (0.0-1.3); Neutrophil % 69.6 % (36.0-66.0); Platelet Count 172 x10^3/uL (150-450); Red Blood Count 3.88 x10^6/uL (4.1-5.4); Red Cell Distribution Width 12.5 % (11.5-14.0); White Blood Count 4.3 x10^3/uL (4.0-10.5)
[2021-09-16 13:26] LABS: ALBUMIN 4.6 g/dL (3.5-5.0); ALKALINE PHOSPHATASE 63 U/L (38-126); AMYLASE 76 U/L (30-110); ANION GAP 13.5 MEQ/L (5-15); BLOOD UREA NITROGEN 10 mg/dL (7-17); CHLORIDE 107 mmol/L (98-107); Calcium 9.3 mg/dL (8.4-10.2); Carbon Dioxide 22 mmol/L (22-30); Creatinine 1 0.64 mg/dL (0.52-1.04); EST GLOMERULAR FILTRATION RATE > 60.0 ML/MIN; Glucose 94 mg/dL (74-106); LIPASE 69 U/L (23-300); Potassium 3.7 mmol/L (3.5-5.1); SGOT/AST 23 U/L (14-36); SGPT/ALT 15 U/L (0-35); SODIUM 139 mmol/L (137-145); Total Protein 7.4 g/dL (6.3-8.2)
[2021-09-16 13:39] LABS: Bacteria RARE /HPF (NEGATIVE)
[2021-09-16 13:41] LABS: Appearance CLEAR (CLEAR); Bilirubin NEGATIVE (NEGATIVE); Glucose NEGATIVE (NEGATIVE); Ketones NEGATIVE (NEGATIVE); Nitrite NEGATIVE (NEGATIVE); Protein,Urine Dip NEGATIVE (Negative); RBC TRACE-INTACT Ery/ul (0-5); Urine Cultured Indicated? NO; Urobilinogen 0.2 mg/dL (0-1)
[2021-09-16 13:43] LABS: Dipstick done @ ? MAIN LAB
[2021-09-16 14:21] VITALS: O2SAT 98
[2021-09-16 14:29] VITALS: BP 112/77; PULSE 84
--- NOTE | 2021-09-16 16:40 | XRAY ---
Exam: CT of the abdomen and pelvis without IV contrast from 09/16/2021. CTDI: 6.18 mGy Comparison: CT of the abdomen and pelvis without IV contrast from 09/13/2021. Indication: 31-year-old female with right lower quadrant abdominal pain with nausea since last evening. The patient gives a prior history of right kidney surgery, hysterectomy with unilateral oophorectomy, hernia repair, and cholecystectomy. Technique: Non-IV contrast axial images were obtained through the abdomen and pelvis. Reconstructed coronal and sagittal images were created and reviewed. Findings: The lung bases are clear, except for a calcified granuloma at the posterior lateral right lung base. The heart size is normal. Evaluation of the solid organs is limited without the use of IV contrast. Otherwise, the liver, spleen, pancreas, and adrenal glands appear essentially unremarkable. Surgical clips consistent with prior cholecystectomy are seen within the right upper quadrant. No intrahepatic biliary duct distention is seen. There is fine surgical material along the anterior lateral margin of the right kidney representing no change. Otherwise, the kidneys appear unremarkable revealing no calculi or hydronephrosis. No definite ureterolith seen. There is no evidence of abdominal aortic aneurysm. No abnormal retroperitoneal lymphadenopathy is seen. There is minimal protrusion of intraperitoneal fat into the base of the umbilicus on midline sagittal image #101 representing no change. This is insignificant. No ventral bowel containing hernia is seen. I believe I can see a normal-appearing small appendix adjacent to the inferior aspect of the cecum, best seen on the sagittal images. No surrounding inflammatory changes are seen to suggest appendicitis. This is unchanged from 09/13/2021. The bowel is not distended. I no longer detect the fluid-filled small bowel or fluid in the ascending colon. The bowel pattern on today's study is unremarkable. There is no evidence of diverticulosis/diverticulitis. I again see an oval soft tissue structure measuring about 4.1 cm x 2.5 cm in cross section within the right pelvic adnexa, likely representing the remaining right ovary. The left ovary is not seen. The uterus is surgically absent. No abnormal pelvic lymphadenopathy or free intraperitoneal fluid is seen. The urinary bladder is only partially distended, but appears grossly unremarkable. The skeleton reveals no acute fracture or other aggressive process Impression: 1. I see no findings to suggest appendicitis within the right lower quadrant. This is unchanged from 09/13/2021. This was discussed with the emergency Department physician following completion of the CT study in the early afternoon of 09/16/2021. 2. The bowel gas pattern now appears unremarkable. No significant fluid-filled small bowel or colon is seen. There is no bowel obstruction. No free air or free fluid is seen. 3. Status post cholecystectomy, hysterectomy, probable left oophorectomy, and evidence of prior right renal surgery are again seen. 4. No other acute process is seen within the abdomen or pelvis.
== END 2021-09-16 14:29 | disposition home or self-care (01) ==
LOC: ED 12:05
DX: R10.31 Right lower quadrant pain (principal); Z85.43 Personal history of malignant neoplasm of ovary; Z79.899 Other long term (current) drug therapy; Z28.310 Unvaccinated for COVID-19
CPT/HCPCS: 36000; 36415; 74176; 80053; 81015; 82150; 83605; 83690; 85025; 86308; 96374; 99284; J2405

== ENCOUNTER 2021-12-21 11:18 | Emergency (ER) | payer OTHER ==
--- NOTE | 2021-12-21 11:23 | ERPHSYRPT ---
- History of Present Illness Time Seen by Provider: 12/21/21 11:23 Source: patient Exam Limitations: no limitations Physician History: This is a 31-year-old female patient who presents with right posterior lateral rib pain. Patient states that 2 days ago she did not have any symptoms of back pain. However, she was mowing her grass on a 0 turn mower which had a lot of vibration yesterday afternoon and today she woke up and had significant right posterior lateral rib pain. Patient has a history of ovarian cancer and has had a left oophorectomy and hysterectomy in the past. She is also had a cholecystectomy in the past. She also has a history of kidney cancer. Method of Injury: other (Possibly caused from the drawing vibrations during operation of his 0 turn mower yesterday) Quality: sharp, aching Severity of Pain-Max: moderate Severity of Pain-Current: moderate Modifying Factors: Improves With: other (Worse with deep inspiration) Associated Symptoms: denies symptoms Previous symptoms: no prior history Allergies/Adverse Reactions: aripiprazole [From [facility]] Allergy (Severe, Verified 12/21/21 11:23) latex Allergy (Severe, Verified 12/21/21 11:23) red hives itch Home Medications: Vortioxetine Hydrobromide [Trintellix] 5 mg PO DAILY 08/30/21 [History] Hx Tetanus, Diphtheria Vaccination/Date Given: Yes Hx Influenza Vaccination/Date Given: No Hx Pneumococcal Vaccination/Date Given: No Travel Risk - International Travel Have you traveled outside of the country in past 3 weeks: No - Coronavirus Screening Are you exhibiting any of the following symptoms?: No Close contact with a COVID-19 positive Pt in past 14-21 Days: No - Vaccine Status Have you recieved a Covid-19 vaccination: No - Review of Systems Constitutional: No Symptoms Eyes: No Symptoms Ears, Nose, & Throat: No Symptoms Respiratory: No Symptoms Cardiac: No Symptoms Abdominal/Gastrointestinal: No Symptoms Genitourinary Symptoms: No Symptoms Musculoskeletal: Other (Right rib pain) Skin: No Symptoms Neurological: No Symptoms Psychological: No Symptoms Endocrine: No Symptoms Hematologic/Lymphatic: No Symptoms Immunological/Allergic: No Symptoms All Other Systems: Reviewed and Negative - Past Medical History Pertinent Past Medical History: Yes Neurological History: No Pertinent History ENT History: No Pertinent History Cardiac History: No Pertinent History Respiratory History: No Pertinent History Endocrine Medical History: No Pertinent History Musculoskeletal History: No Pertinent History History: Kidney Cancer Psycho-Social History: Depression Female Reproductive Disorders: Ovarian Cancer Other Medical History: trentillix 5 mg - Past Surgical History Past Surgical History: Yes Other Surgical History: tonsils. genesis. c section X 3. oophrectomy left. hysterectomy. exploratory ob. hernia repair - Social History Smoking Status: Former smoker Exposure to second hand smoke: No Drug Use: none Patient Lives Alone: No - Nursing Vital Signs Nursing Vital Signs: Initial Vital Signs Temperature 96.0 F 12/21/21 11:24 Pulse Rate 82 12/21/21 11:24 Respiratory Rate 19 12/21/21 11:24 Blood Pressure 130/83 12/21/21 11:24 O2 Sat by Pulse Oximetry 98 12/21/21 11:24 Pain Scale Pain Intensity 9 - Physical Exam General Appearance: no apparent distress, alert, anxiety Eye Exam: PERRL/EOMI, eyes nml inspection Ears, Nose, Throat Exam: normal ENT inspection, moist mucous membranes Neck Exam: normal inspection, non-tender, supple, full range of motion Respiratory Exam: normal breath sounds, lungs clear, other (Tender right posterior lateral ribs to palpation), No chest tenderness, No respiratory distress Cardiovascular Exam: regular rate/rhythm, normal heart sounds, normal peripheral pulses Gastrointestinal Exam: soft, normal bowel sounds, No tenderness Pelvic Exam: not done Rectal Exam: not done Back Exam: normal inspection, normal range of motion, No CVA tenderness, No vertebral tenderness Extremity Exam: normal inspection, normal range of motion, pelvis stable Neurologic Exam: alert, oriented x 3, cooperative, zipper slide attacher II-XII nml as tested, normal mood/affect, nml cerebellar function, nml station & gait, sensation nml Skin Exam: normal color, warm, dry Lymphatic Exam: No adenopathy SpO2 Interpretation: normal O2 Delivery: Room Air - Course Nursing assessment & vital signs reviewed: Yes Ordered Tests: Active Orders 24 hr Category Date Time Status CHEST 1 VIEW (PORTABLE) Stat Exams 12/21/21 11:35 Completed UA W/RFX CULTURE Stat Lab 12/21/21 11:44 Completed Lab/Rad Data: Laboratory Results 12/21/21 Range/Units 11:44 Urinalys Dipstick Clnc MAIN LAB Urine Color YELLOW (YELLOW) Urine Appearance CLEAR (CLEAR) Urine pH 7.5 (5-6) Ur Specific [place] 1.015 (1.005-1.025) POC Urine Protein Conf NEGATIVE (Negative) Urine Ketones NEGATIVE (NEGATIVE) Urine Nitrite NEGATIVE (NEGATIVE) Urine Bilirubin NEGATIVE (NEGATIVE) Urine Urobilinogen NORMAL (0-1) mg/dL Urine Leukocytes NEGATIVE (NEGATIVE) Urine WBC (Auto) 0-2 (0-5) /HPF Urine RBC (Auto) 0-2 (0-2) /HPF U Epithel Cells (Auto) RARE (FEW) /HPF Urine Bacteria (Auto) NONE SEEN (NEGATIVE) /HPF Urine RBC NEGATIVE (0-5) Art/ul Urine Mucus (Auto) SLIGHT (NEGATIVE) /HPF Ur Culture Indicated? NO Urine Glucose NEGATIVE (NEGATIVE) mg/dL - Progress Progress Note: 12/21/21 12:30 Chest x-ray shows no acute cardiopulmonary or bony thorax processes Counseled pt/family regarding: lab results, diagnosis, need for follow-up, rad results - Departure Departure Disposition: Home Clinical Impression: Pain on movement of skeletal muscle Condition: Stable Critical Care Time: No Referrals: JAY CASH NP [Primary Care Provider] - Follow up/PCP as directed Additional Instructions: Take your medication as prescribed. Follow-up with your primary care provider for further evaluation and management. Prescriptions: Prednisone 10 mg [Deltasone 10 mg] 10 mg PO TID #12 tablet Orphenadrine Citrate 100 mg [Norflex 100 MG Tablet] 100 mg PO BID #10 tab
--- NOTE | 2021-12-21 12:26 | XRAY ---
Indication: Chest heaviness with inspiration. Comparison: None Portable chest demonstrates normal heart, lungs, and bony thorax.
[2021-12-21 13:05] LABS: Appearance CLEAR (CLEAR); Bilirubin NEGATIVE (NEGATIVE); Dipstick done @ ? MAIN LAB; Glucose NEGATIVE (NEGATIVE); Ketones NEGATIVE (NEGATIVE); Nitrite NEGATIVE (NEGATIVE); Ph 7.5 (5-6); Protein,Urine Dip NEGATIVE (Negative); RBC NEGATIVE Ery/ul (0-5); Specific Gravity 1.015 (1.005-1.025); Urobilinogen NORMAL mg/dL (0-1)
[2021-12-21 13:06] LABS: Bacteria NONE SEEN /HPF (NEGATIVE); Epithelial Cells RARE /HPF (FEW); Mucus SLIGHT /HPF (NEGATIVE); RBC 0-2 /HPF (0-2); Urine Cultured Indicated? NO; WBC 0-2 /HPF (0-5)
[2021-12-21] MEDS ORDERED: PERCOCET TABLET 5/325MG PO STA (13:13)
[2021-12-21] MEDS ORDERED: PERCOCET TABLET 5/325MG ONE (13:15)
[2021-12-21 13:18] VITALS: BP 119/77; PULSE 60; O2SAT 99
== END 2021-12-21 13:32 | disposition home or self-care (01) ==
LOC: ED 11:18
DX: R07.81 Pleurodynia (principal); Z79.899 Other long term (current) drug therapy; Z28.310 Unvaccinated for COVID-19; Z79.52 Long term (current) use of systemic steroids
CPT/HCPCS: 71045; 81015; 99282; A9270-GY

== ENCOUNTER 2022-03-04 11:09 | Emergency (ER) | payer OTHER ==
[2022-03-04 11:27] LABS: Appearance CLOUDY (CLEAR); Bilirubin SMALL (NEGATIVE); Glucose 100 mg/dL (NEGATIVE); Ketones TRACE (NEGATIVE); Specific Gravity 1.025 (1.005-1.025)
[2022-03-04 11:28] LABS: Dipstick done @ ? MAIN LAB; Nitrite NEGATIVE (NEGATIVE); Protein,Urine Dip >=300 (Negative); RBC MODERATE Ery/ul (0-5); Urobilinogen 1 mg/dL (0-1)
[2022-03-04 11:41] LABS: Bacteria RARE /HPF (NEGATIVE); Epithelial Cells RARE /HPF (FEW); Mucus SLIGHT /HPF (NEGATIVE); RBC 26-50 /HPF (0-2); WBC >100 /HPF (0-5)
[2022-03-04 11:43] LABS: Urine Cultured Indicated? YES
[2022-03-04] MEDS ORDERED: KEFLEX 500 MG PO ONE (11:49)
[2022-03-04] MEDS ORDERED: KEFLEX 500 MG ONE (11:54)
--- NOTE | 2022-03-04 11:55 | ERPHSYRPT ---
- History of Present Illness Time Seen by Provider: 03/04/22 11:35 Source: patient Exam Limitations: no limitations Patient Subjective Stated Complaint: C/O "UTI". Patient states she started having burning during urination a few weeks ago. Patient is now having burning in her urethra at all times that "feels like razor blades" when she urinates. Denies vaginal itching or discharge. Triage Nursing Assessment: Patient ambulated back to ED without difficulties. She is alert and oriented. No SOB. Physician History: 31 years old female with UTI symptoms gradually worsening over couple of weeks. Patient reports increased urinary frequency, dysuria and it feels as if she is having razor blades in urethra. Did notice some hematuria this morning. Denies any flank pain. Does have sense of of incomplete voiding and constant need to urinate. No fever or chills reported. Denies any nausea or vomiting. No vaginal bleeding or discharge. Does have history of hysterectomy. Timing/Duration: week(s), gradual onset, worse Quality: sharpness Onset Location: urethral Pain Radiation: none Severity of Pain-Max: moderate Severity of Pain-Current: none Modifying Factors: Worsens With: urinating Associated Symptoms: dysuria, urinary frequency, No abdominal pain, No fever, No chills, No vomiting, No loss of bladder control, No lower back pain, No vaginal discharge Allergies/Adverse Reactions: aripiprazole [From [facility]] Allergy (Severe, Verified 03/04/22 11:21) latex Allergy (Severe, Verified 03/04/22 11:21) red hives itch Home Medications: Vortioxetine Hydrobromide [Trintellix] 5 mg PO DAILY 08/30/21 [History] Hx Tetanus, Diphtheria Vaccination/Date Given: Yes Hx Influenza Vaccination/Date Given: No Hx Pneumococcal Vaccination/Date Given: No Travel Risk - International Travel Have you traveled outside of the country in past 3 weeks: No - Coronavirus Screening Are you exhibiting any of the following symptoms?: No Close contact with a COVID-19 positive Pt in past 14-21 Days: No - Vaccine Status Have you recieved a Covid-19 vaccination: No - Review of Systems Constitutional: No Symptoms Eyes: No Symptoms Respiratory: No Symptoms Cardiac: No Symptoms Abdominal/Gastrointestinal: No Symptoms Genitourinary Symptoms: Dysuria, Frequency, Hematuria Musculoskeletal: No Symptoms Neurological: No Symptoms Psychological: No Symptoms Hematologic/Lymphatic: No Symptoms Immunological/Allergic: No Symptoms - Past Medical History Pertinent Past Medical History: Yes Neurological History: No Pertinent History ENT History: No Pertinent History Cardiac History: No Pertinent History Respiratory History: No Pertinent History Endocrine Medical History: Thyroid Cancer Musculoskeletal History: No Pertinent History GI Medical History: Gallbladder Disease, Hernia History: Kidney Cancer Psycho-Social History: Depression, Other Female Reproductive Disorders: Ovarian Cancer Other Medical History: PTSD, Multiple personality disorder - Past Surgical History Past Surgical History: Yes Gastrointestinal: Cholecystectomy, Exploratory Laparoscopy, Hernia Repair Genitourinary: Kidney Surgery Female Surgical History: Hysterectomy, Section Other Surgical History: exploratory ob, partial right nephrectomy, right oopherectomy - Social History Smoking Status: Never smoker Exposure to second hand smoke: No Drug Use: none Patient Lives Alone: No - Female History Hx Now: No (Hysterectomy) - Nursing Vital Signs Nursing Vital Signs: Initial Vital Signs Temperature 98.4 F 03/04/22 11:09 Pulse Rate 76 03/04/22 11:09 Respiratory Rate 18 03/04/22 11:09 Blood Pressure 121/71 03/04/22 11:09 O2 Sat by Pulse Oximetry 99 03/04/22 11:09 Pain Scale Pain Intensity 7 - Physical Exam General Appearance: no apparent distress, alert Eye Exam: PERRL/EOMI Ears, Nose, Throat Exam: normal ENT inspection Neck Exam: normal inspection Respiratory Exam: normal breath sounds, lungs clear Cardiovascular Exam: regular rate/rhythm, normal heart sounds Gastrointestinal/Abdomen Exam: soft, normal bowel sounds, No tenderness Back Exam: normal inspection, normal range of motion, No CVA tenderness Extremity Exam: normal inspection, normal range of motion Neurologic Exam: alert, oriented x 3, cooperative Skin Exam: normal color SpO2 Interpretation: normal SpO2: 99 O2 Delivery: Room Air Ordered Tests: Active Orders 24 hr Category Date Time Status CULTURE,URINE Stat Lab 03/04/22 11:20 Received UA W/RFX CULTURE Stat Lab 03/04/22 11:20 Completed Lab/Rad Data: Laboratory Results 03/04/22 Range/Units 11:20 Urinalys Dipstick Clnc MAIN LAB Urine Color YELLOW (YELLOW) Urine Appearance CLOUDY A (CLEAR) Urine pH 7.0 (5-6) Ur Specific [place] 1.025 (1.005-1.025) POC Urine Protein Conf >=300 A (Negative) Urine Ketones TRACE A (NEGATIVE) Urine Nitrite NEGATIVE (NEGATIVE) Urine Bilirubin SMALL A (NEGATIVE) Urine Urobilinogen 1 A (0-1) mg/dL Urine Leukocytes LARGE A (NEGATIVE) Urine WBC (Auto) >100 A (0-5) /HPF Urine RBC (Auto) 26-50 A (0-2) /HPF U Epithel Cells (Auto) RARE (FEW) /HPF Urine Bacteria (Auto) RARE (NEGATIVE) /HPF Urine RBC MODERATE A (0-5) Art/ul Urine Mucus (Auto) SLIGHT A (NEGATIVE) /HPF Ur Culture Indicated? YES Urine Glucose 100 A (NEGATIVE) mg/dL - Progress Progress: unchanged Air Movement: good Progress Note: 03/04/22 11:53 Does have UTI, started on Keflex. Outpatient follow-up recommended. Tylenol as needed. Blood Culture(s) Obtained: No Antibiotics given: Yes Counseled pt/family regarding: lab results, diagnosis, need for follow-up - Departure Departure Disposition: Home Clinical Impression: Acute UTI Condition: Stable Critical Care Time: No Referrals: JAY CASH NP [Primary Care Provider] - Follow Up with PCP/3 days Instructions: Urinary Tract Infection, Adult (DC) Additional Instructions: Take Tylenol as needed. Increase hydration. Follow-up with primary care for reevaluation. Return to ER for worsening symptoms or urinary tract infection, flank pain, intractable nausea vomiting/fever chills etc. Prescriptions: Cephalexin Mh 500 mg [Keflex 500 mg] 500 mg PO TID #21 cap Phenazopyridine HCl 200 mg [Pyridium 200 mg] 200 mg PO TID #6 tablet
[2022-03-04 12:17] VITALS: BP 117/68; PULSE 63; O2SAT 98
== END 2022-03-04 12:22 | disposition home or self-care (01) ==
LOC: ED 11:09
DX: N39.0 Urinary tract infection, site not specified (principal); R30.0 Dysuria; R35.0 Frequency of micturition; Z79.899 Other long term (current) drug therapy; Z28.310 Unvaccinated for COVID-19
CPT/HCPCS: 81015; 87077; 87086; 87186; 99282; A9270-GY

== ENCOUNTER 2022-03-22 11:56 | Emergency (ER) | payer OTHER ==
--- NOTE | 2022-03-22 12:02 | ERPHSYRPT ---
- History of Present Illness Time Seen by Provider: 03/22/22 12:02 Physician History: Patient left without being seen Allergies/Adverse Reactions: aripiprazole [From [facility]] Allergy (Severe, Verified 03/04/22 11:21) latex Allergy (Severe, Verified 03/04/22 11:21) red hives itch Home Medications: Vortioxetine Hydrobromide [Trintellix] 5 mg PO DAILY 08/30/21 [History] Hx Tetanus, Diphtheria Vaccination/Date Given: Yes Hx Influenza Vaccination/Date Given: No Hx Pneumococcal Vaccination/Date Given: No Travel Risk - Vaccine Status Have you recieved a Covid-19 vaccination: No - Past Medical History Pertinent Past Medical History: Yes Neurological History: No Pertinent History ENT History: No Pertinent History Cardiac History: No Pertinent History Respiratory History: No Pertinent History Endocrine Medical History: Thyroid Cancer Musculoskeletal History: No Pertinent History GI Medical History: Gallbladder Disease, Hernia History: Kidney Cancer Psycho-Social History: Depression, Other Female Reproductive Disorders: Ovarian Cancer Other Medical History: PTSD, Multiple personality disorder - Past Surgical History Past Surgical History: Yes Gastrointestinal: Cholecystectomy, Exploratory Laparoscopy, Hernia Repair Genitourinary: Kidney Surgery Female Surgical History: Hysterectomy, Section Other Surgical History: exploratory ob, partial right nephrectomy, right oopherectomy - Social History Smoking Status: Never smoker Exposure to second hand smoke: No Drug Use: none Patient Lives Alone: No - Departure Departure Disposition: Left without being seen Clinical Impression: Abdominal pain Referrals: JAY CASH SUPERVISOR [employer] [Primary Care Provider] - Follow up/PCP as directed
== END 2022-03-22 12:19 | disposition left against medical advice (07) ==
LOC: ED 11:56
DX: Z53.21 Procedure and treatment not carried out due to patient leaving prior to being seen by health care provider (principal)
CPT/HCPCS: 99281

== ENCOUNTER 2022-08-09 09:39 | Emergency (ER) | payer SELFPAY ==
[2022-08-09 10:07] VITALS: BP 115/74; PULSE 80; O2SAT 99
--- NOTE | 2022-08-09 10:20 | ERPHSYRPT ---
- History of Present Illness Source: patient Exam Limitations: no limitations Patient Subjective Stated Complaint: C/O rash to face that started a little over a week ago. Patient states she scratched her nose creating and opening in her skin and then the rash spread over face over time. It itches. Triage Nursing Assessment: Rash to face; nose, around parts of mouth. Clusters of small pustules with redness around them Physician History: 31 yo Wf w encrusted facial rash x 10 days. Rash is mildly pruritic. She denies fever/ST/N/V/D/family members w similar rash. Timing/Duration: other (10 days) Quality: itchy Severity: mild Location: face Possible Causes: no cause identified Associated Symptoms: denies symptoms Allergies/Adverse Reactions: aripiprazole [From [facility]] Allergy (Severe, Verified 08/09/22 09:54) latex Allergy (Severe, Verified 08/09/22 09:54) red hives itch Home Medications: Vortioxetine Hydrobromide [Trintellix] 5 mg PO DAILY 08/30/21 [History] Hx Tetanus, Diphtheria Vaccination/Date Given: Yes Hx Influenza Vaccination/Date Given: No Hx Pneumococcal Vaccination/Date Given: No Immunizations Up to Date: Yes Travel Risk - International Travel Have you traveled outside of the country in past 3 weeks: No - Coronavirus Screening Are you exhibiting any of the following symptoms?: No Close contact with a COVID-19 positive Pt in past 14-21 Days: No - Vaccine Status Have you recieved a Covid-19 vaccination: No - Review of Systems Constitutional: No Symptoms Eyes: No Symptoms Ears, Nose, & Throat: No Symptoms Respiratory: No Symptoms Cardiac: No Symptoms Abdominal/Gastrointestinal: No Symptoms Genitourinary Symptoms: No Symptoms Musculoskeletal: No Symptoms Neurological: No Symptoms Psychological: No Symptoms Endocrine: No Symptoms Hematologic/Lymphatic: No Symptoms Immunological/Allergic: No Symptoms - Past Medical History Pertinent Past Medical History: Yes Neurological History: No Pertinent History ENT History: No Pertinent History Cardiac History: No Pertinent History Respiratory History: No Pertinent History Endocrine Medical History: Thyroid Cancer Musculoskeletal History: No Pertinent History GI Medical History: Gallbladder Disease, Hernia History: Kidney Cancer Psycho-Social History: Depression, Other Female Reproductive Disorders: Ovarian Cancer Other Medical History: PTSD, Multiple personality disorder - Past Surgical History Past Surgical History: Yes Gastrointestinal: Cholecystectomy, Exploratory Laparoscopy, Hernia Repair Genitourinary: Kidney Surgery Female Surgical History: Hysterectomy, Section Other Surgical History: exploratory ob, partial right nephrectomy, right oopherectomy - Social History Smoking Status: Never smoker Exposure to second hand smoke: No Drug Use: none Patient Lives Alone: No - Female History Hx Now: No (hysterectomy) - Nursing Vital Signs Nursing Vital Signs: Initial Vital Signs Temperature 97.7 F 08/09/22 09:55 Pulse Rate 80 08/09/22 09:55 Respiratory Rate 18 08/09/22 09:55 Blood Pressure 115/74 08/09/22 09:55 O2 Sat by Pulse Oximetry 99 08/09/22 09:55 Pain Scale Pain Intensity 0 WNL - Physical Exam General Appearance: no apparent distress Eye Exam: PERRL/EOMI, eyes nml inspection Ears, Nose, Throat Exam: normal ENT inspection, TMs normal, pharynx normal, moist mucous membranes Neck Exam: normal inspection, non-tender, supple, full range of motion, No meningismus, No mass, No Brudzinski, No Kernig's, No carotid bruit Respiratory Exam: normal breath sounds, lungs clear, airway intact, No respiratory distress Cardiovascular Exam: regular rate/rhythm, normal heart sounds, normal peripheral pulses, capillary refill <2 sec, No murmur Gastrointestinal/Abdomen Exam: soft, normal bowel sounds, No tenderness Back Exam: normal inspection Extremity Exam: normal inspection Neurologic Exam: alert, oriented x 3, cooperative, 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, normal mood/affect, nml cerebellar function, nml station & gait, sensation nml, No motor deficits, No sensory deficit Skin Exam: other (Encrusted, erythematous rash on face) Lymphatic Exam: No adenopathy SpO2 Interpretation: normal SpO2: 99 O2 Delivery: Room Air - Course Nursing assessment & vital signs reviewed: Yes - Progress Progress Note: 08/09/22 11:32 No food or housing insecurities noted Nursing note and vital signs reviewed Pt most likely has impetigo w classic encrusted rash around nares/face Counseled pt/family regarding: diagnosis, need for follow-up Medical Desision Making - Social Determinants of Health Pt's dx & treatment plan are significantly limited by SDOH: Unemployed - Risk of complications The pt has a mod risk of morbidity or mortality based on: Need for prescription drug management - Departure Departure Disposition: Home Clinical Impression: Impetigo Condition: Stable Critical Care Time: No Referrals: JAY CASH DIRECTOR CONSUMER [Primary Care Provider] - Follow up/PCP as directed Instructions: Impetigo (DC) Additional Instructions: Doxycycline twice a day for 10 days Apply Bactroban ointment to areas twice a day for 10-14 days Follow up with your family MD Return to ER as needed Prescriptions: Mupirocin [Centany] 1 applic TP BID 10 Days #22 units Doxycycline Monohydrate 100 mg PO BID 10 Days #20 cap
== END 2022-08-09 10:36 | disposition home or self-care (01) ==
LOC: ED 09:39
DX: L01.00 Impetigo, unspecified (principal); Z28.310 Unvaccinated for COVID-19; Z79.899 Other long term (current) drug therapy; Z56.0 Unemployment, unspecified
CPT/HCPCS: 99281

== ENCOUNTER 2023-08-06 12:26 | Emergency (ER) | payer OTHER ==
--- NOTE | 2023-08-06 12:49 | ERPHSYRPT ---
- History of Present Illness Time Seen by Provider: 08/06/23 12:49 Historian: patient Exam Limitations: no limitations Physician History: This is a 32-year-old white female patient who underwent a thyroidectomy on 07/26/2023 in [facility] via Dr. Jonny Ruiz secondary to thyroid cancer. She was started on calcitriol and provided thyroid supplementation medication. Patient states she was doing well until approximately 3:00 this morning when she vomited a couple of times and she feels very nauseated. She denies flulike symptoms. She denies cramping in her muscles. She has no significant abdominal pain at this time. She denies shortness of breath. She denies chest pain. She denies difficulty swallowing. Patient has a history of hypothyroidism, PTSD and multi personality disorder Timing/Duration: today Activities at Onset: none Abdominal Pain Onset Location: other Severity of Pain-Max: none Severity of Pain-Current: none (No abdominal pain) Modifying Factors: Improves With: vomiting Associated Symptoms: nausea, vomiting Previous symptoms: no prior history Allergies/Adverse Reactions: aripiprazole [From Abilify] Allergy (Severe, Verified 08/06/23 12:39) latex Allergy (Severe, Verified 08/06/23 12:39) red hives itch venlafaxine [From Effexor] Allergy (Verified 08/06/23 12:39) Home Medications: Levothyroxine Sodium 100 Mcg [Synthroid 100 Mcg] 100 mcg PO DAILY 08/06/23 [History] calcitrioL [Calcitriol] 0.5 mcg PO DAILY 08/06/23 [History] Hx Tetanus, Diphtheria Vaccination/Date Given: Yes Hx Influenza Vaccination/Date Given: No Hx Pneumococcal Vaccination/Date Given: No Travel Risk - International Travel Have you traveled outside of the country in past 3 weeks: No - Emerging Infectious Disease Are you exhibiting symptoms associated with any current EIDs: No - Review of Systems Constitutional: No Symptoms Eyes: No Symptoms Ears, Nose, & Throat: No Symptoms Respiratory: No Symptoms Cardiac: No Symptoms Abdominal/Gastrointestinal: Nausea, Vomiting, Appetite Changes, No Abdominal Pain, No Diarrhea, No Constipation Genitourinary Symptoms: No Symptoms Musculoskeletal: No Symptoms Skin: No Symptoms Neurological: No Symptoms Psychological: No Symptoms Endocrine: No Symptoms Hematologic/Lymphatic: No Symptoms Immunological/Allergic: No Symptoms All Other Systems: Reviewed and Negative - Past Medical History Pertinent Past Medical History: Yes Neurological History: No Pertinent History ENT History: No Pertinent History Cardiac History: No Pertinent History Respiratory History: No Pertinent History Endocrine Medical History: Thyroid Cancer Musculoskeletal History: No Pertinent History GI Medical History: Gallbladder Disease, Hernia History: Kidney Cancer Psycho-Social History: Depression, Other Female Reproductive Disorders: Ovarian Cancer Other Medical History: PTSD, Multiple personality disorder - Past Surgical History Past Surgical History: Yes Gastrointestinal: Cholecystectomy, Exploratory Laparoscopy, Hernia Repair Genitourinary: Kidney Surgery Female Surgical History: Hysterectomy, Section Other Surgical History: exploratory ob, partial right nephrectomy, right oopherectomy - Social History Smoking Status: Never smoker Exposure to second hand smoke: No Drug Use: none Patient Lives Alone: No - Nursing Vital Signs Nursing Vital Signs: Initial Vital Signs Pulse Rate 78 08/06/23 12:40 Blood Pressure 120/77 08/06/23 12:40 O2 Sat by Pulse Oximetry 98 08/06/23 12:40 Pain Scale Pain Intensity 9 - Physical Exam General Appearance: no apparent distress, alert, anxiety Eye Exam: PERRL/EOMI, eyes nml inspection Ears, Nose, Throat Exam: normal ENT inspection, moist mucous membranes Neck Exam: supple, full range of motion, other (Operative thyroidectomy scar is intact. 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, no rmal mood/affect, nml cerebellar function, nml station & gait, sensation nml Skin Exam: normal color, warm, dry Lymphatic Exam: No adenopathy SpO2 Interpretation: normal O2 Delivery: Room Air Ordered Tests: Active Orders 24 hr Category Date Time Status IV Insertion STAT Care 08/06/23 12:57 Active AMYLASE Stat Lab 08/06/23 12:57 Completed CBC W DIFF Stat Lab 08/06/23 12:57 Completed CMP Stat Lab 08/06/23 12:57 Completed LIPASE Stat Lab 08/06/23 12:57 Completed MAGNESIUM Stat Lab 08/06/23 12:57 Completed TSH, 3RD Generation Stat Lab 08/06/23 12:57 Completed UA W/RFX UR CULTURE Stat Lab 08/06/23 13:05 Completed Medication Summary Discontinued Medications Generic Name Dose Route Start Last Admin Trade Name Erika PRN Reason Stop Dose Admin Sodium Chloride 1,000 mls @ 999 mls/hr 08/06/23 12:57 08/06/23 13:08 Sodium Chloride 0.9% 1000 Ml IV 08/06/23 13:57 999 mls/hr .Q1H1M STA Administration Sodium Chloride Confirm 08/06/23 13:07 Sodium Chloride 0.9% 1000 Ml Administered 08/06/23 13:08 Dose 1,000 mls @ ud .ROUTE .STK-MED ONE Ondansetron HCl 4 mg 08/06/23 12:57 08/06/23 13:07 Ondansetron Hcl 4 Mg/2 Ml Vial IV 08/06/23 12:58 4 mg STAT ONE Administration Ondansetron HCl Confirm 08/06/23 13:07 Ondansetron Hcl 4 Mg/2 Ml Vial Administered 08/06/23 13:08 Dose 4 mg .ROUTE .STK-MED ONE Lab/Rad Data: Laboratory Result Diagrams 08/06/23 12:57 08/06/23 12:57 Laboratory Results 08/06/23 08/06/23 08/06/23 Range/Units Unknown 13:05 12:57 WBC (4.0-10.5) x10^3/uL RBC (4.1-5.4) x10^6/uL Hgb (12.0-16.0) g/dL Hct (35-47) % MCV (78-100) fL MCH (26-32) pg MCHC (32-36) g/dL RDW (11.5-14.0) % Plt Count (150-450) x10^3/uL MPV (7.5-11.0) fL Gran % (36.0-66.0) % Immature Gran % (Auto) (0.00-0.4) % Nucleat RBC Rel Count (0.00-0.1) % Eos # (Auto) (0-0.5) x10^3/uL Immature Gran # (Auto) (0.00-0.03) x10^3u/L Absolute Lymphs (auto) (1.0-4.6) x10^3/uL Absolute Monos (auto) (0.0-1.3) x10^3/uL Absolute Nucleated RBC (0.00-0.01) x10^3u/L Lymphocytes % (24.0-44.0) % Monocytes % (0.0-12.0) % Eosinophils % (0.00-5.0) % Basophils % (0.0-0.4) % Absolute Granulocytes (1.4-6.9) x10^3/uL Basophils # (0-0.4) x10^3/uL Sodium 142 (135-145) mmol/L Potassium 4.0 (3.5-5.1) mmol/L Chloride 109 H (98-107) mmol/L Carbon Dioxide 20 L (22-30) mmol/L Anion Gap 16.8 H (5-15) MEQ/L BUN 12 (7-17) mg/dL Creatinine 0.57 (0.52-1.04) mg/dL Estimated GFR 122.2 ML/MIN Glucose 98 (74-106) mg/dL Calcium 8.5 (8.4-10.2) mg/dL Magnesium 1.5 L (1.6-2.3) mg/dL Total Bilirubin 0.60 (0.2-1.3) mg/dL AST 26 (14-36) U/L ALT 27 (0-35) U/L Alkaline Phosphatase 40 (38-126) U/L Serum Total Protein 7.5 (6.3-8.2) g/dL Albumin 5.0 (3.5-5.0) g/dL Amylase 61 (30-110) U/L Lipase 63 (23-300) U/L Free T4 0.72 L (0.78-2.19) ng/dL TSH 3rd Generation 3.040 (0.470-4.680) mIU/L Urine Color Yellow (Yellow) Urine Appearance Clear (Clear) Urine pH 7.5 (4.6-8.0) Ur Specific Malott 1.020 (1.005-1.030) Urine Protein 30 (Negative) Urine Glucose (UA) Negative (Negative) mg/dL Urine Ketones Negative (Negative) Urine Blood Negative (Negative) Urine Nitrite Negative (Negative) Urine Bilirubin Negative (Negative) Urine Urobilinogen 0.2 (0.2) mg/dL Ur Leukocyte Esterase Negative (Negative) U Hyaline Cast (Auto) NONE SEEN (0-2) /LPF Urine Microscopic RBC 0-2 (0-5) /HPF Urine Microscopic WBC 0-2 (0-5) /HPF Ur Epithelial Cells None Seen (None Seen) /HPF Urine Bacteria None Seen (None Seen) /HPF Urine Culture Reflexed NO (NO) 08/06/23 Range/Units 12:57 WBC 8.0 (4.0-10.5) x10^3/uL RBC 3.91 L (4.1-5.4) x10^6/uL Hgb 12.7 (12.0-16.0) g/dL Hct 35.5 (35-47) % MCV 90.8 (78-100) fL MCH 32.5 H (26-32) pg MCHC 35.8 (32-36) g/dL RDW 11.6 (11.5-14.0) % Plt Count 234 (150-450) x10^3/uL MPV 11.2 H (7.5-11.0) fL Gran % 80.8 H (36.0-66.0) % Immature Gran % (Auto) 0.2 (0.00-0.4) % Nucleat RBC Rel Count 0.0 (0.00-0.1) % Eos # (Auto) 0.05 (0-0.5) x10^3/uL Immature Gran # (Auto) 0.02 (0.00-0.03) x10^3u/L Absolute Lymphs (auto) 1.04 (1.0-4.6) x10^3/uL Absolute Monos (auto) 0.43 (0.0-1.3) x10^3/uL Absolute Nucleated RBC 0.00 (0.00-0.01) x10^3u/L Lymphocytes % 12.9 L (24.0-44.0) % Monocytes % 5.3 (0.0-12.0) % Eosinophils % 0.6 (0.00-5.0) % Basophils % 0.2 (0.0-0.4) % Absolute Granulocytes 6.48 (1.4-6.9) x10^3/uL Basophils # 0.02 (0-0.4) x10^3/uL Sodium (135-145) mmol/L Potassium (3.5-5.1) mmol/L Chloride (98-107) mmol/L Carbon Dioxide (22-30) mmol/L Anion Gap (5-15) MEQ/L BUN (7-17) mg/dL Creatinine (0.52-1.04) mg/dL Estimated GFR ML/MIN Glucose (74-106) mg/dL Calcium (8.4-10.2) mg/dL Magnesium (1.6-2.3) mg/dL Total Bilirubin (0.2-1.3) mg/dL AST (14-36) U/L ALT (0-35) U/L Alkaline Phosphatase (38-126) U/L Serum Total Protein (6.3-8.2) g/dL Albumin (3.5-5.0) g/dL Amylase (30-110) U/L Lipase (23-300) U/L Free T4 (0.78-2.19) ng/dL TSH 3rd Generation (0.470-4.680) mIU/L Urine Color (Yellow) Urine Appearance (Clear) Urine pH (4.6-8.0) Ur Specific Malott (1.005-1.030) Urine Protein (Negative) Urine Glucose (UA) (Negative) mg/dL Urine Ketones (Negative) Urine Blood (Negative) Urine Nitrite (Negative) Urine Bilirubin (Negative) Urine Urobilinogen (0.2) mg/dL Ur Leukocyte Esterase (Negative) U Hyaline Cast (Auto) (0-2) /LPF Urine Microscopic RBC (0-5) /HPF Urine Microscopic WBC (0-5) /HPF Ur Epithelial Cells (None Seen) /HPF Urine Bacteria (None Seen) /HPF Urine Culture Reflexed (NO) - Progress Progress Note: 08/06/23 13:11 My medical decision making and the assignment of moderate complexity to this patient's medical issue today is based on review of the patient's past medical history, review patient medication list, review the patient's drug allergy list, history present illness and physical findings on examination. The workup includes placement of intravenous line, infusion of normal saline solution, infusion of Zofran intravenously, CBC, CMP, amylase, lipase, magnesium level, free T4 and TSH levels as well as urinalysis. Differential diagnosis includes hypocalcemia, other electrolyte abnormalities, thyroid function abnormality, dehydration, urinary tract infection, pancreatitis 08/06/23 14:09 I interpreted the patient's laboratory data results. Patient's thyroid function test as well as calcium level is in the normal range. Counseled pt/family regarding: lab results, diagnosis, need for follow-up Medical Desision Making - Diagnostic Testing Diagnostic test were ordered, analyzed, and reviewed by me: Yes - Risk of complications The pt has a mod risk of morbidity or mortality based on: Need for prescription drug management - Departure Departure Disposition: Home Clinical Impression: Nausea and vomiting Condition: Stable Critical Care Time: No Referrals: DOCTOR,NO FAMILY [Primary Care Provider] - Follow up/PCP as directed Additional Instructions: Start with clear liquids. Do not advance your diet until you are tolerating clear liquids well. Advance your diet slowly. Call your prescribing provider and your surgeon today, 08/07/2023, and let them know of your symptoms today so that they can arrange a follow-up appointment in the next 3 to 5 days. Prescriptions: Ondansetron ODT 4 MG [Zofran Odt 4 mg] 4 mg PO Q6H PRN PRN #10 tablet PRN Reason: Vomiting
[2023-08-06 12:55] VITALS: RESP 14; TEMP 98.3; O2SAT 97
[2023-08-06 13:03] LABS: Absolute Neutrophil Ct (ANC) 6.48 x10^3/uL (1.4-6.9); BASOPHIL % 0.2 % (0.0-0.4); Basophil (Absolute #) 0.02 x10^3/uL (0-0.4); Eosinophil % 0.6 % (0.00-5.0); Eosinophil (Absolute #) 0.05 x10^3/uL (0-0.5); Hematocrit 35.5 % (35-47); Hemoglobin 12.7 g/dL (12.0-16.0); IMMATURE GRAN # 0.02 x10^3u/L (0.00-0.03); IMMATURE GRAN % 0.2 % (0.00-0.4); Lymphocyte (Absolute #) 1.04 x10^3/uL (1.0-4.6); Lymphocytes % 12.9 % (24.0-44.0); Mean Cell Volume 90.8 fL (78-100); Mean Corpuscular Hemoglobin 32.5 pg (26-32); Mean Corpuscular Hgb Concent. 35.8 g/dL (32-36); Mean Platelet Volume 11.2 fL (7.5-11.0); Monocyte (Absolute #) 0.43 x10^3/uL (0.0-1.3); Monocytes % 5.3 % (0.0-12.0); Neutrophil % 80.8 % (36.0-66.0); Platelet Count 234 x10^3/uL (150-450); Red Blood Count 3.91 x10^6/uL (4.1-5.4); Red Cell Distribution Width 11.6 % (11.5-14.0)
[2023-08-06 13:07] LABS: Appearance Clear (Clear); Bilirubin Negative (Negative); Blood Negative (Negative); Glucose, Urine Negative (Negative); Ketones Negative (Negative); Leukocyte Esterase Negative (Negative); Nitrite Negative (Negative); Ph 7.5 (4.6-8.0); Protein,Urine Dip 30 (Negative); Urobilinogen 0.2 mg/dL (0.2)
[2023-08-06] MEDS ORDERED: Sodium Chloride 0.9% 1000 ML 1,000 ML ONE (13:07)
[2023-08-06] MEDS ORDERED: Zofran 4 MG/2 ML VIAL ONE (13:07)
[2023-08-06] MEDS: Zofran 4 MG/2 ML VIAL IV ONE (13:07)
[2023-08-06] MEDS: Sodium Chloride 0.9% 1000 ML 1,000 ML IV STA (13:08)
[2023-08-06 13:18] LABS: Bacteria None Seen /HPF (None Seen); Epithelial Cells None Seen /HPF (None Seen); Hyaline Casts NONE SEEN /LPF (0-2); RBC 0-2 /HPF (0-5); WBC 0-2 /HPF (0-5)
[2023-08-06 13:25] LABS: ADD URINE CULTURE? NO (NO)
[2023-08-06 13:48] LABS: ANION GAP 16.8 MEQ/L (5-15); BILIRUBIN,TOTAL 0.6 mg/dL (0.2-1.3); Calcium 8.5 mg/dL (8.4-10.2); Creatinine 1 0.57 mg/dL (0.52-1.04); EST GLOMERULAR FILTRATION RATE 122.2 ML/MIN; MAGNESIUM 1.5 mg/dL (1.6-2.3); TSH, 3RD Generation 3.04 mIU/L (0.470-4.680); Total Protein 7.5 g/dL (6.3-8.2)
[2023-08-06 14:02] VITALS: BP 101/63; PULSE 80
== END 2023-08-06 14:54 | disposition home or self-care (01) ==
LOC: ED 12:26
DX: R11.2 Nausea with vomiting, unspecified (principal); Z79.899 Other long term (current) drug therapy
CPT/HCPCS: 36000; 36415; 80053; 81001; 82150; 83690; 83735; 84439; 84443; 85025; 96360; 96374; 99284; J2405

== ENCOUNTER 2024-07-29 13:39 | Emergency (ER) | payer OTHER ==
--- NOTE | 2024-07-29 13:57 | ERPHSYRPT ---
- History of Present Illness Time Seen by Provider: 07/29/24 13:52 Source: patient Exam Limitations: no limitations Physician History: 33-year-old female presents to emergency department for evaluation of pain to her left lower extremity. Patient was diagnosed with a peroneal nerve compression at that time. Patient was advised to follow-up with orthopedics but has not done so. Patient states the pain is constant and somewhat worse over the past few days. No interval trauma. No associated chest pain or shortness of breath. Patient has no significant past medical history other than hypothyroidism. 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 Lorrie corrales otherwise feels well. She voices no other complaints or concerns at this time. Portions of this note were created with voice recognition technology. There may be grammatical, spelling, punctuation or sound alike errors Severity: moderate (1 month) Modifying Factors: Improves With: other (Palpation to the knee and posterior calf) Associated Symptoms: denies symptoms Allergies/Adverse Reactions: aripiprazole [From Abilify] Allergy (Severe, Verified 08/06/23 12:39) latex Allergy (Severe, Verified 08/06/23 12:39) red hives itch venlafaxine [From Effexor] Allergy (Verified 08/06/23 12:39) Home Medications: Levothyroxine Sodium 100 Mcg [Synthroid 100 Mcg] 100 mcg PO DAILY 08/06/23 [History] calcitrioL [Calcitriol] 0.5 mcg PO DAILY 08/06/23 [History] Hx Tetanus, Diphtheria Vaccination/Date Given: Yes Hx Influenza Vaccination/Date Given: No Hx Pneumococcal Vaccination/Date Given: No Travel Risk - Emerging Infectious Disease Are you exhibiting symptoms associated with any current EIDs: No Symptoms: Vomitting - Review of Systems Constitutional: No Symptoms, No Fever, No Chills Eyes: No Symptoms Ears, Nose, & Throat: No Symptoms Respiratory: No Symptoms, No Cough, No Dyspnea Cardiac: No Symptoms, No Chest Pain, No Edema, No Syncope Abdominal/Gastrointestinal: No Symptoms, No Abdominal Pain, No Nausea, No Vo miting, No Diarrhea Genitourinary Symptoms: No Symptoms, No Dysuria Musculoskeletal: No Symptoms, Other (The involved left lower extremity is neurovascular intact distally compartments are soft cap refill less than 2 seconds), No Back Pain, No Neck Pain Skin: No Symptoms, No Rash Neurological: No Symptoms, No Dizziness, No Focal Weakness, No Sensory Changes Psychological: No Symptoms Endocrine: No Symptoms Hematologic/Lymphatic: No Symptoms Immunological/Allergic: No Symptoms All Other Systems: Reviewed and Negative - Past Medical History Pertinent Past Medical History: Yes Neurological History: No Pertinent History ENT History: No Pertinent History Cardiac History: No Pertinent History Respiratory History: No Pertinent History Endocrine Medical History: Thyroid Cancer Musculoskeletal History: No Pertinent History GI Medical History: Gallbladder Disease, Hernia History: Kidney Cancer Psycho-Social History: Depression, Other Female Reproductive Disorders: Ovarian Cancer Other Medical History: PTSD, Multiple personality disorder - Past Surgical History Past Surgical History: Yes Gastrointestinal: Cholecystectomy, Exploratory Laparoscopy, Hernia Repair Genitourinary: Kidney Surgery Female Surgical History: Hysterectomy, Section Other Surgical History: exploratory ob, partial right nephrectomy, right oopherectomy - Social History Smoking Status: Never smoker Exposure to second hand smoke: No Drug Use: none Patient Lives Alone: No - Social Determinants of Health Will the patient participate in the screening: Yes Do you worry about a steady place to live?: No In the past 12 months,have you had to go without utilities?: No Transportation Issues: No Has anyone in your support network made you feel unsafe?: No Have you or anyone in your house had to go w/o enough food: No - Nursing Vital Signs Nursing Vital Signs: Initial Vital Signs Temperature 97.2 F 07/29/24 13:44 Pulse Rate 74 07/29/24 13:44 Respiratory Rate 18 07/29/24 13:44 Blood Pressure 156/116 07/29/24 13:44 O2 Sat by Pulse Oximetry 96 07/29/24 13:44 Pain Scale Pain Intensity 8 - Physical Exam General Appearance: no apparent distress, alert Eye Exam: PERRL/EOMI, eyes nml inspection Ears, Nose, Throat Exam: normal ENT inspection, TMs normal, pharynx normal, moist mucous membranes Neck Exam: normal inspection, non-tender, supple, full range of motion Respiratory Exam: normal breath sounds, lungs clear, No respiratory distress Cardiovascular Exam: regular rate/rhythm, normal heart sounds, normal peripheral pulses Gastrointestinal/Abdomen Exam: soft, normal bowel sounds, No tenderness, No mass Back Exam: normal inspection, normal range of motion, No CVA tenderness, No vertebral tenderness Extremity Exam: normal inspection, normal range of motion, pelvis stable, khadra's sign (Positive Homans' sign left lower extremity), other (The involved left lower extremity is neurovascular tact distally compartments are soft cap refill less than 2 seconds.) Neurologic Exam: alert, oriented x 3, cooperative, normal mood/affect, sensation nml, No motor deficits Skin Exam: normal color, warm, dry, No rash Lymphatic Exam: No adenopathy SpO2 Interpretation: normal SpO2: 96 O2 Delivery: Room Air - Course Nursing assessment & vital signs reviewed: Yes - Radiology Exams Knee X-ray Interpretation: Teleradiologist Report (No fracture or dislocation) - Radiology Ultrasound Exam Venous Lower Extremity Ultrasound: tele radiology report (No DVT otherwise no acute findings) Ordered Tests: Active Orders 24 hr Category Date Time Status KNEE (1 OR 2 VIEW) Stat Exams 07/29/24 13:51 Completed VENOUS UNILAT/LIMITED EXTREMIT [US] Stat Exams 07/29/24 13:54 Completed Medication Summary Discontinued Medications Generic Name Dose Route Start Last Admin Trade Name Erika PRN Reason Stop Dose Admin Ketorolac Tromethamine 30 mg 07/29/24 14:00 07/29/24 14:09 Ketorolac Tromethamine 30 Mg/Ml Inj IM 07/29/24 14:01 30 mg STAT ONE Administration Ketorolac Tromethamine Confirm 07/29/24 14:07 Ketorolac Tromethamine 30 Mg/Ml Inj Administered 07/29/24 14:08 Dose 30 mg .ROUTE .STK-MED ONE - Progress Progress: improved Progress Note: 33-year-old female presents to our ED with a 1 month history of left knee and leg pain. 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 Patient was advised to follow-up with orthopedics. Patient did not do so. Patient reports that the previous doctor did not order imaging studies. X-ray left knee negative for fracture dislocation. On exam patient had left calf tenderness. Ultrasound left lower extremity negative for DVT. Patient received Toradol for pain control. No indication for further workup will discharge. Patient will follow-up in orthopedic clinic for follow-up. Patient will follow-up tomorrow for a reevaluation. Portions of this note were created with voice recognition technology. There may be grammatical, spelling, punctuation or sound alike errors Complexity of problem addressed is moderate acute complicated. No critical care time. Complexity of data reviewed and analyzed as moderate. Test ordered test reviewed results analyzed and correlated clinically with history and physical exam. Risk of complication and or risk of morbidity/mortality of patient management is moderate. A prescription for Toradol forwarded to patient's pharmacy. Vital stable. Time spent to discharge patient is approximately 15 minutes. Plan of care established via shared decision making. No social determinants of health present to impede follow-up. Portions of this note were created with voice recognition technology. There may be grammatical, spelling, punctuation or sound alike errors 07/29/24 15:02 Counseled pt/family regarding: diagnosis, need for follow-up, rad results - Departure Departure Disposition: Home Clinical Impression: Neuropathic pain, Knee pain Condition: Stable Critical Care Time: No Referrals: MAXIMINO ARNOLD, MECHANIC CHIEF [Primary Care Provider, [facility]] - Follow up/PCP as directed Additional Instructions: Discharge/Care Plan LILIANACHATA MAXIMINO was seen on 07/29/24 in the Emergency Room. The patient was counseled regarding Diagnosis,Lab results, Imaging studies, need for follow up and when to return to the Emergency Room. Prescriptions given: Discharge Note I have spoken with the patient and/or caregivers. I have explained the patient's condition, diagnosis and treatment plan based on the information available to me at this time. I have answered the patient's and/or caregiver's questions and addressed any concerns. The patient and/or caregivers have as good understanding of the patient's diagnosis, condition and treatment plan as can be expected at this point. The vital signs have been stable. The patient's condition is stable and appropriate for discharge from the emergency department. The patient will pursue further outpatient evaluation with the primary care physician or other designated or consulting physician as outlined in the discharge instructions. The patient and/or caregivers are agreeable to this plan of care and follow-up instructions have been explained in detail. The patient and/or caregivers have received these instruction. The patient/and or caregivers are aware that any significant change in condition or worsening of symptoms should prompt an immediate return to this or the closest emergency department or call 911. Forms: Work/School Release Form Prescriptions: Ketorolac Trometh 10 mg Tab [TORAdol 10 MG TABLET] 10 mg PO TID 5 Days #15 tablet Outpatient Orders: Ortho Referral Time Frame: 1 Day, Facility: [facility], Location: ORTHO CLINIC
[2024-07-29 13:58] VITALS: PULSE 74; RESP 18; TEMP 97.2
[2024-07-29] MEDS ORDERED: TORAdol 30 mg Injection ONE (14:07)
--- NOTE | 2024-07-29 14:08 | XRAY ---
Indication: Pain. Comparison: None 2 view left knee obtained. No bony, articular, or soft tissue abnormalities.
[2024-07-29] MEDS: TORAdol 30 mg Injection IM ONE (14:09)
[2024-07-29 14:47] VITALS: BP 134/84
--- NOTE | 2024-07-29 14:56 | XRAY ---
Indication: Pain. Two-dimensional sonogram and color Doppler imaging major venous vessels left leg performed. Comparison: None No thrombus seen in the examined deep venous vessels left leg including greater saphenous vein. Veins demonstrate normal compressibility. Venous waveforms are normal with and without augmentation. Targeted soft tissue ultrasound lateral knee, region of interest is negative for focal solid/cystic mass or abnormal fluid collection. Impression: Left leg negative for DVT.
[2024-07-29 15:05] VITALS: O2SAT 96
== END 2024-07-29 15:19 | disposition home or self-care (01) ==
LOC: ED 13:39
DX: G57.82 Other specified mononeuropathies of left lower limb (principal); M25.562 Pain in left knee; Z79.899 Other long term (current) drug therapy
CPT/HCPCS: 73560; 93971; 96372; 99284; J1885

== ENCOUNTER 2025-01-20 21:15 | Emergency (ER) | payer OTHER ==
--- NOTE | 2025-01-20 21:32 | ERPHSYRPT ---
- History of Present Illness Time Seen by Provider: 01/20/25 22:08 Historian: patient Exam Limitations: no limitations Patient Subjective Stated Complaint: c/o chest pain Triage Nursing Assessment: patient brought self to ED with c/o chest pain that started at work [employer]. 40 minutes ago. patient stated the pain radiates to her left shoulder, denies SOB at this time but was earlier, states she has been told she has an enlarged heart, nausea present, slightly hypertensive, skin w/n/d, gait steady, 97% on RA, pulses normal, s1 and s2 heard, lung sounds clear Physician History: Patient is a 34-year-old female history of depression thyroid cancer kidney cancer ovarian cancer presents to our ED for evaluation of chest pain. Patient states symptoms started approximately 40 minutes prior to arrival. Pain described as an ache that radiates to her left shoulder and back. Patient describes nausea. No associated shortness of breath. No trauma no fever. Patient reports a history of cardiomegaly. Patient otherwise feels well. She voices no other complaints or concerns at this time. Portions of this note were created with voice recognition technology. There may be grammatical, spelling, punctuation or sound alike errors Timing/Duration: today Activities at Onset: none Quality: aching Location: substernal Chest Pain Radiation: arm Severity of Pain-Max: moderate Severity of Pain-Current: mild Modifying Factors: Improves With: nothing Associated Symptoms: nausea Prior Chest Pain/Cardiac Workup: no prior chest pain Nitro Today/Relief: no nitro taken today Aspirin Treatment Today: no aspirin today Allergies/Adverse Reactions: aripiprazole [From Abilify] Allergy (Severe, Verified 01/20/25 21:19) latex Allergy (Severe, Verified 01/20/25 21:19) red hives itch NSAIDS (Non-Steroidal Anti-Inflamma Allergy (Verified 01/20/25 21:19) pt had kidney cancer and is unable to take NSAIDS venlafaxine [From Effexor] Allergy (Verified 01/20/25 21:19) Home Medications: Levothyroxine Sodium 100 Mcg [Synthroid 100 Mcg] 125 mcg PO DAILY 08/06/23 [History] Hx Tetanus, Diphtheria Vaccination/Date Given: Yes Hx Influenza Vaccination/Date Given: No Hx Pneumococcal Vaccination/Date Given: No Travel Risk - International Travel Have you traveled outside of the country in past 3 weeks: No - Emerging Infectious Disease Are you exhibiting symptoms associated with any current EIDs: No Symptoms: Vomitting - Review of Systems All Other Systems: Reviewed and Negative - Past Medical History Pertinent Past Medical History: Yes Neurological History: No Pertinent History, Other ENT History: No Pertinent History Cardiac History: No Pertinent History Respiratory History: No Pertinent History Endocrine Medical History: Thyroid Cancer Musculoskeletal History: No Pertinent History GI Medical History: Gallbladder Disease, Hernia History: Kidney Cancer Psycho-Social History: Depression, Other Female Reproductive Disorders: Ovarian Cancer Other Medical History: PTSD, Multiple personality disorder - Past Surgical History Past Surgical History: Yes Gastrointestinal: Cholecystectomy, Exploratory Laparoscopy, Hernia Repair Genitourinary: Kidney Surgery Female Surgical History: Hysterectomy, Section Other Surgical History: exploratory ob, partial right nephrectomy, right oopherectomy, thyroidectomy , x 3 - Female History Hx Last Menstrual Period: 4 years ago Hx Now: No - Social History Smoking Status: Never smoker Exposure to second hand smoke: No Drug Use: none - Social Determinants of Health Will the patient participate in the screening: Yes Do you worry about a steady place to live?: No Do you have any problems with any of the following?: No known problems In the past 12 months,have you had to go without utilities?: No Transportation Issues: No Has anyone in your support network made you feel unsafe?: No Have you or anyone in your house had to go w/o enough food: No - Nursing Vital Signs Nursing Vital Signs: Initial Vital Signs Pulse Rate 80 01/20/25 21:19 Respiratory Rate 19 01/20/25 21:19 Blood Pressure 146/95 01/20/25 21:19 O2 Sat by Pulse Oximetry 96 01/20/25 21:19 Pain Scale Pain Intensity 0 - Physical Exam General Appearance: no apparent distress, alert Eye Exam: PERRL/EOMI, eyes nml inspection Neck Exam: normal inspection, full range of motion Respiratory Exam: normal breath sounds, lungs clear, airway intact, No respiratory distress Cardiovascular Exam: regular rate/rhythm, normal heart sounds, normal peripheral pulses Gastrointestinal/Abdomen Exam: soft, No tenderness, No mass Back Exam: normal inspection, No CVA tenderness, No vertebral tenderness Extremity Exam: normal inspection, normal range of motion Neurologic Exam: alert, oriented x 3, cooperative, normal mood/affect, sensation nml, No motor deficits Skin Exam: normal color, warm, dry SpO2 Interpretation: normal SpO2: 96 O2 Delivery: Room Air - Course Nursing assessment & vital signs reviewed: Yes EKG Interpreted by Me: RATE (71), Sinus Rhythm, NORMAL AXIS, NORMAL INTERVALS, NORMAL QRS - Radiology Exams Chest X-ray Interpretation: Teleradiologist Report (Blunting left costophrenic angle) Ordered Tests: Active Orders 24 hr Category Date Time Status AMA [Release AMA] OM.NOW Care 01/21/25 01:36 Ordered Pourer Metal STAT Care 01/20/25 21:31 Active EKG-ER Only STAT Care 01/20/25 21:30 Active IV Insertion STAT Care 01/20/25 21:30 Active Pulse Oximetry (ED) STAT Care 01/20/25 21:30 Active CHEST 1 VIEW (PORTABLE) Stat Exams 01/20/25 22:12 Completed CBC W DIFF Stat Lab 01/20/25 21:40 Completed CMP Stat Lab 01/20/25 21:40 Completed D-DIMER QUANTITATIVE Stat Lab 01/20/25 21:40 Completed HCG QUALITATIVE, URINE Stat Lab 01/20/25 21:45 Completed NT PRO BNPII Stat Lab 01/20/25 21:40 Completed TROPONIN Q4H Lab 01/20/25 21:40 Completed TROPONIN Q4H Lab 01/21/25 00:30 Completed TROPONIN Q4H Lab 01/21/25 05:30 Ordered UA W/RFX UR CULTURE Stat Lab 01/20/25 21:44 Completed Medication Summary Discontinued Medications Generic Name Dose Route Start Last Admin Trade Name Erika PRN Reason Stop Dose Admin Acetaminophen 975 mg 01/20/25 22:02 01/20/25 22:05 Acetaminophen 325 Mg Tablet PO 01/20/25 22:03 975 mg STAT ONE Administration Acetaminophen Confirm 01/20/25 22:04 Acetaminophen 325 Mg Tablet Administered 01/20/25 22:05 Dose 975 mg .ROUTE .STK-MED ONE Nitroglycerin 1 gm 01/20/25 22:01 01/20/25 22:05 Nitroglycerin 1 Gm Packet TOP 01/20/25 22:02 1 gm STAT ONE Administration Nitroglycerin Confirm 01/20/25 22:04 Nitroglycerin 1 Gm Packet Administered 01/20/25 22:05 Dose 1 gm .ROUTE .STK-MED ONE Lab/Rad Data: Laboratory Result Diagrams 01/20/25 21:40 01/20/25 21:40 Laboratory Results 01/21/25 01/20/25 01/20/25 Range/Units 00:30 21:45 21:44 WBC (3.98-10.04) x10^3/uL RBC (3.93-5.22) x10^6/uL Hgb (11.2-15.7) g/dL Hct (34.1-44.9) % MCV (79.4-94.8) fL MCH (25.6-32.2) pg MCHC (32.2-35.5) g/dL RDW (11.7-14.4) % Plt Count (182-369) x10^3/uL MPV (9.4-12.3) fL Gran % (34.0-71.1) % Immature Gran % (Auto) (0.001-0.429) % Nucleat RBC Rel Count (0.00-0.2) % Eos # (Auto) (0.04-0.36) x10^3/uL Immature Gran # (Auto) (0.001-0.031) x10^3u/L Absolute Lymphs (auto) (1.18-3.74) x10^3/uL Absolute Monos (auto) (0.24-0.86) x10^3/uL Absolute Nucleated RBC (0.00-0.012) x10^3u/L Lymphocytes % (19.3-51.7) % Monocytes % (4.7-12.5) % Eosinophils % (0.7-5.8) % Basophils % (0.1-1.2) % Absolute Granulocytes (1.56-6.13) x10^3/uL Basophils # (0.01-0.08) x10^3/uL D-Dimer (0.0-0.50) mg/L Sodium (135-145) mmol/L Potassium (3.5-5.1) mmol/L Chloride (98-107) mmol/L Carbon Dioxide (22-30) mmol/L Anion Gap (5-15) MEQ/L BUN (7-17) mg/dL Creatinine (0.52-1.04) mg/dL Estimated GFR ML/MIN Glucose (74-106) mg/dL Calcium (8.4-10.2) mg/dL Total Bilirubin (0.2-1.3) mg/dL AST (14-36) U/L ALT (0-35) U/L Alkaline Phosphatase (38-126) U/L Troponin I < 0.012 (0.000-0.033) ng/mL NT-Pro-B Natriuret Pep (<300) pg/mL Serum Total Protein (6.3-8.2) g/dL Albumin (3.5-5.0) g/dL Urine Color Yellow (Yellow) Urine Appearance Clear (Clear) Urine pH 7.0 (4.6-8.0) Ur Specific [place] <=1.005 (1.005-1.030) Urine Protein Negative (Negative) Urine Glucose (UA) Negative (Negative) mg/dL Urine Ketones Negative (Negative) Urine Blood Negative (Negative) Urine Nitrite Negative (Negative) Urine Bilirubin Negative (Negative) Urine Urobilinogen 0.2 (0.2) mg/dL Ur Leukocyte Esterase Negative (Negative) U Hyaline Cast (Auto) NONE SEEN (0-2) /LPF Urine Microscopic RBC 0-2 (0-5) /HPF Urine Microscopic WBC 0-2 (0-5) /HPF Ur Epithelial Cells Few (None Seen) /HPF Urine Bacteria None Seen (None Seen) /HPF Urine Culture Reflexed NO (NO) Urine HCG, Qual NEGATIVE (NEGATIVE) 01/20/25 01/20/25 01/20/25 Range/Units 21:40 21:40 21:40 WBC (3.98-10.04) x10^3/uL RBC (3.93-5.22) x10^6/uL Hgb (11.2-15.7) g/dL Hct (34.1-44.9) % MCV (79.4-94.8) fL MCH (25.6-32.2) pg MCHC (32.2-35.5) g/dL RDW (11.7-14.4) % Plt Count (182-369) x10^3/uL MPV (9.4-12.3) fL Gran % (34.0-71.1) % Immature Gran % (Auto) (0.001-0.429) % Nucleat RBC Rel Count (0.00-0.2) % Eos # (Auto) (0.04-0.36) x10^3/uL Immature Gran # (Auto) (0.001-0.031) x10^3u/L Absolute Lymphs (auto) (1.18-3.74) x10^3/uL Absolute Monos (auto) (0.24-0.86) x10^3/uL Absolute Nucleated RBC (0.00-0.012) x10^3u/L Lymphocytes % (19.3-51.7) % Monocytes % (4.7-12.5) % Eosinophils % (0.7-5.8) % Basophils % (0.1-1.2) % Absolute Granulocytes (1.56-6.13) x10^3/uL Basophils # (0.01-0.08) x10^3/uL D-Dimer < 0.19 (0.0-0.50) mg/L Sodium 137 (135-145) mmol/L Potassium 3.8 (3.5-5.1) mmol/L Chloride 106 (98-107) mmol/L Carbon Dioxide 19 L (22-30) mmol/L Anion Gap 15.8 H (5-15) MEQ/L BUN 15 (7-17) mg/dL Creatinine 0.75 (0.52-1.04) mg/dL Estimated GFR 105.8 ML/MIN Glucose 91 (74-106) mg/dL Calcium 8.8 (8.4-10.2) mg/dL Total Bilirubin 0.80 (0.2-1.3) mg/dL AST 28 (14-36) U/L ALT 15 (0-35) U/L Alkaline Phosphatase 52 (38-126) U/L Troponin I < 0.012 (0.000-0.033) ng/mL NT-Pro-B Natriuret Pep 89.6 (<300) pg/mL Serum Total Protein 7.8 (6.3-8.2) g/dL Albumin 5.1 H (3.5-5.0) g/dL Urine Color (Yellow) Urine Appearance (Clear) Urine pH (4.6-8.0) Ur Specific [place] (1.005-1.030) Urine Protein (Negative) Urine Glucose (UA) (Negative) mg/dL Urine Ketones (Negative) Urine Blood (Negative) Urine Nitrite (Negative) Urine Bilirubin (Negative) Urine Urobilinogen (0.2) mg/dL Ur Leukocyte Esterase (Negative) U Hyaline Cast (Auto) (0-2) /LPF Urine Microscopic RBC (0-5) /HPF Urine Microscopic WBC (0-5) /HPF Ur Epithelial Cells (None Seen) /HPF Urine Bacteria (None Seen) /HPF Urine Culture Reflexed (NO) Urine HCG, Qual (NEGATIVE) 01/20/25 Range/Units 21:40 WBC 7.1 (3.98-10.04) x10^3/uL RBC 3.79 L (3.93-5.22) x10^6/uL Hgb 12.2 (11.2-15.7) g/dL Hct 35.3 (34.1-44.9) % MCV 93.1 (79.4-94.8) fL MCH 32.2 (25.6-32.2) pg MCHC 34.6 (32.2-35.5) g/dL RDW 11.5 L (11.7-14.4) % Plt Count 196 (182-369) x10^3/uL MPV 11.7 (9.4-12.3) fL Gran % 60.7 (34.0-71.1) % Immature Gran % (Auto) 0.4 (0.001-0.429) % Nucleat RBC Rel Count 0.0 (0.00-0.2) % Eos # (Auto) 0.13 (0.04-0.36) x10^3/uL Immature Gran # (Auto) 0.03 (0.001-0.031) x10^3u/L Absolute Lymphs (auto) 2.02 (1.18-3.74) x10^3/uL Absolute Monos (auto) 0.58 (0.24-0.86) x10^3/uL Absolute Nucleated RBC 0.00 (0.00-0.012) x10^3u/L Lymphocytes % 28.5 (19.3-51.7) % Monocytes % 8.2 (4.7-12.5) % Eosinophils % 1.8 (0.7-5.8) % Basophils % 0.4 (0.1-1.2) % Absolute Granulocytes 4.31 (1.56-6.13) x10^3/uL Basophils # 0.03 (0.01-0.08) x10^3/uL D-Dimer (0.0-0.50) mg/L Sodium (135-145) mmol/L Potassium (3.5-5.1) mmol/L Chloride (98-107) mmol/L Carbon Dioxide (22-30) mmol/L Anion Gap (5-15) MEQ/L BUN (7-17) mg/dL Creatinine (0.52-1.04) mg/dL Estimated GFR ML/MIN Glucose (74-106) mg/dL Calcium (8.4-10.2) mg/dL Total Bilirubin (0.2-1.3) mg/dL AST (14-36) U/L ALT (0-35) U/L Alkaline Phosphatase (38-126) U/L Troponin I (0.000-0.033) ng/mL NT-Pro-B Natriuret Pep (<300) pg/mL Serum Total Protein (6.3-8.2) g/dL Albumin (3.5-5.0) g/dL Urine Color (Yellow) Urine Appearance (Clear) Urine pH (4.6-8.0) Ur Specific [place] (1.005-1.030) Urine Protein (Negative) Urine Glucose (UA) (Negative) mg/dL Urine Ketones (Negative) Urine Blood (Negative) Urine Nitrite (Negative) Urine Bilirubin (Negative) Urine Urobilinogen (0.2) mg/dL Ur Leukocyte Esterase (Negative) U Hyaline Cast (Auto) (0-2) /LPF Urine Microscopic RBC (0-5) /HPF Urine Microscopic WBC (0-5) /HPF Ur Epithelial Cells (None Seen) /HPF Urine Bacteria (None Seen) /HPF Urine Culture Reflexed (NO) Urine HCG, Qual (NEGATIVE) - Progress Progress: improved Air Movement: good Progress Note: Patient is a 34-year-old female history of depression thyroid cancer kidney cancer ovarian cancer presents to our ED for evaluation of chest pain that radiated to her left shoulder and back. Chest pain resolved with nitroglycerin paste. EKG shows some borderline inferior T wave abnormalities. Patient does not recall the last time she had blood work to assess her blood lipids. However she says she is scheduled to have 1 done tomorrow. Patient's heart score is a 3. We advise hospitalization for further evaluation and treatment of her chest pain. Patient declined. Patient states she prefers to go home and she will follow-up with her primary care doctor tomorrow. D-dimer negative. Troponin negative x 2. Chest x-ray shows a new left blunting of her left costophrenic angle possible pleural effusion. Differential diagnosis includes ACS History obtained from patient. Patient decided to leave AMA. Patient states she has her daughter at home and is scheduled to follow-up with her primary care doctor tomorrow morning I considered administering aspirin however patient is allergic to NSAIDs. Dr. Burkett independently reviewed and interpreted patient's chest x-ray. Blunting of left costophrenic angle observed. This was a preliminary read. Formal read confirmed the blunting of the left costophrenic angle. Patient is of sound mind. Patient is appropriate to make informed and independent medical decisions. Patient understands that leaving AGAINST MEDICAL ADVICE can result in delayed diagnosis, increased risk of morbidity, mortality, short and long-term disability including . In spite of these risks, patient has decided to leave AGAINST MEDICAL ADVICE. Patient understands that she may return to our ED at any point if she reconsiders. Patient agrees to follow-up with her primary care doctor within 48 hours for reevaluation. Patient voices no other complaints or concerns at this time. We will release patient AGAINST MEDICAL ADVICE per their request. Complexity of problems addressed is moderate acute complicated. No critical care time. Complexity of data reviewed and analyzed is moderate. Test ordered test reviewed results analyzed and correlated clinically with history and physical exam. Risk of complication and or risk of morbidity/mortality of patient management is low. Vital stable. Time spent to discharge patient is approximately 15 minutes. No social determinants of health present to impede follow-up. Portions of this note were created with voice recognition technology. There may be grammatical, spelling, punctuation or sound alike errors 01/21/25 01:37 Blood Culture(s) Obtained: No Antibiotics given: No Counseled pt/family regarding: lab results, diagnosis, need for follow-up, rad results - Departure Departure Disposition: AMA Clinical Impression: Chest pain, ACS (acute coronary syndrome) Condition: Stable Critical Care Time: No Referrals: KIMBERLEY KHAN MD [Primary Care Provider, [facility]] - Follow up/PCP as directed Additional Instructions: Discharge/Care Plan CHATA FORD was seen on 01/21/25 in the Emergency Room. The patient was counseled regarding Diagnosis,Lab results, Imaging studies, need for follow up and when to return to the Emergency Room. Prescriptions given: Discharge Note I have spoken with the patient and/or caregivers. I have explained the patient's condition, diagnosis and treatment plan based on the information available to me at this time. I have answered the patient's and/or caregiver's questions and addressed any concerns. The patient and/or caregivers have as good understanding of the patient's diagnosis, condition and treatment plan as can be expected at this point. The vital signs have been stable. The patient's condition is stable and appropriate for discharge from the emergency department. The patient will pursue further outpatient evaluation with the primary care physician or other designated or consulting physician as outlined in the discharge instructions. The patient and/or caregivers are agreeable to this plan of care and follow-up instructions have been explained in detail. The patient and/or caregivers have received these instruction. The patient/and or caregivers are aware that any significant change in condition or worsening of symptoms should prompt an immediate return to this or the closest emergency department or call 911.
[2025-01-20 21:44] LABS: BASOPHIL % 0.4 % (0.1-1.2); Basophil (Absolute #) 0.03 x10^3/uL (0.01-0.08); Eosinophil (Absolute #) 0.13 x10^3/uL (0.04-0.36); Hematocrit 35.3 % (34.1-44.9); Hemoglobin 12.2 g/dL (11.2-15.7); IMMATURE GRAN # 0.03 x10^3u/L (0.001-0.031); IMMATURE GRAN % 0.4 % (0.001-0.429); Lymphocyte (Absolute #) 2.02 x10^3/uL (1.18-3.74); Mean Corpuscular Hemoglobin 32.2 pg (25.6-32.2); Mean Corpuscular Hgb Concent. 34.6 g/dL (32.2-35.5); Monocyte (Absolute #) 0.58 x10^3/uL (0.24-0.86); NUCLEATED RBC # 0.00 x10^3u/L (0.00-0.012); NUCLEATED RBC % 0.0 % (0.00-0.2); Platelet Count 196 x10^3/uL (182-369); Red Blood Count 3.79 x10^6/uL (3.93-5.22); White Blood Count 7.1 x10^3/uL (3.98-10.04)
[2025-01-20 21:53] LABS: HCG URINE TEST NEGATIVE (NEGATIVE)
[2025-01-20 21:58] LABS: Glucose, Urine Negative (Negative); Protein,Urine Dip Negative (Negative); RBC 0-2 /HPF (0-5); WBC 0-2 /HPF (0-5)
[2025-01-20] MEDS ORDERED: NITRO-BID 2% UD PACKETS ONE (22:04)
[2025-01-20] MEDS ORDERED: TYLENOL 325 MG ONE (22:04)
[2025-01-20] MEDS: NITRO-BID 2% UD PACKETS TOP ONE (22:05)
[2025-01-20] MEDS: TYLENOL 325 MG PO ONE (22:05)
[2025-01-20 22:12] LABS: Calcium 8.8 mg/dL (8.4-10.2); Carbon Dioxide 19 mmol/L (22-30); Creatinine 1 0.75 mg/dL (0.52-1.04); EST GLOMERULAR FILTRATION RATE 105.8 ML/MIN; Glucose 91 mg/dL (74-106); Potassium 3.8 mmol/L (3.5-5.1); SGOT/AST 28 U/L (14-36); SGPT/ALT 15 U/L (0-35); TROPONIN < 0.012 ng/mL (0.000-0.033); Total Protein 7.8 g/dL (6.3-8.2)
--- NOTE | 2025-01-20 22:57 | XRAY ---
CLINICAL HISTORY: pain COMPARISON: 10/25/2024 TECHNIQUE: An X-ray image of the chest was obtained in the AP projection. FINDINGS: Pulmonary Parenchyma: Right hilar nodule, likely vascular end-on. The lungs are clear bilaterally. There is no evidence of consolidation, collapse, or focal opacities. No pulmonary nodules are identified. Interval new blunted left CP angle could be due to small pleural effusion versus projectional. Please correlate clinically. Heart and Mediastinum: The heart size and shape are normal. There is no mediastinal widening or masses. No hilar or mediastinal lymphadenopathy is observed. Bony Thorax: The bony thorax appears intact, without fractures or deformities. ECG lead. Soft Tissues: The soft tissues overlying the chest wall are unremarkable. IMPRESSION: Interval new blunted left CP angle could be due to small pleural effusion versus projectional. Please correlate clinically. Electronically Signed by: Deangelo Bob MD. (01/20/2025 22:56:40 EST)
[2025-01-21 01:12] VITALS: BP 128/86; PULSE 66; RESP 18
[2025-01-21 01:30] VITALS: O2SAT 96
== END 2025-01-21 01:55 | disposition left against medical advice (07) ==
LOC: ED 21:15
DX: R07.9 Chest pain, unspecified (principal); I24.9 Acute ischemic heart disease, unspecified; R11.0 Nausea; Z79.899 Other long term (current) drug therapy